=== PATIENT | female | born 1955 | race Caucasian/White ===

== ENCOUNTER 2016-05-27 15:45 | Emergency (ER) | payer OTHER ==
[~2016-05-27] VITALS: Ht 157.5 cm; Wt 54.4 kg
[2016-05-27 15:45] VITALS: BP 141/71
[2016-05-27] MEDS ORDERED: OMEP40CA2 PO (15:57)
[2016-05-27] MEDS ORDERED: METF500T PO (15:57)
== END 2016-05-27 17:18 | disposition home or self-care (01) ==
LOC: M ED 16:39
DX: S00.93XA Contusion of unspecified part of head, initial encounter (principal); S00.91XA Abrasion of unspecified part of head, initial encounter; W01.198A Fall on same level from slipping, tripping and stumbling with subsequent striking against other object, initial encounter; Y92.410 Unspecified street and highway as the place of occurrence of the external cause; Y93.01 Activity, walking, marching and hiking; Y99.9 Unspecified external cause status

== ENCOUNTER → 2016-11-20 | Outpatient (CLI) | payer OTHER ==
[~2016-11-20] MED LIST: METF500T13 PO; OMEP40CA2 PO
[2016-11-20 08:49] LABS: MEAN CORPUSCULAR HEMOGLOBIN 29.8 pg (27.0-33.0); MEAN CORPUSCULAR HGB CONC 33.5 g/dl (32.0-36.5); MEAN CORPUSCULAR VOLUME 88.9 fl (80.0-96.0); RED CELL DISTRIBUTION WIDTH 11.9 % (11.5-14.5); WHITE BLOOD COUNT 6.1 10^3/uL (4.0-10.0)
[2016-11-20 09:07] LABS: ALBUMIN 3.7 GM/DL (3.2-5.2); ALBUMIN/GLOBULIN RATIO 1.23 (1.00-1.93); ALKALINE PHOSPHATASE 55 U/L (45-117); ALT/SGPT 33 U/L (12-78); ANION GAP 9 MEQ/L (8-16); AST/SGOT 22 U/L (15-37); BILIRUBIN,TOTAL 0.4 MG/DL (0.2-1.0); BLOOD UREA NITROGEN 23 MG/DL (7-18); CALCIUM LEVEL 8.8 MG/DL (8.8-10.2); CARBON DIOXIDE LEVEL 29 MEQ/L (21-32); CHLORIDE LEVEL 104 MEQ/L (98-107); CHOLESTEROL LEVEL 113 MG/DL (<200); CREATININE FOR GFR 0.88 MG/DL (0.55-1.02); GLOMERULAR FILTRATION RATE > 60.0 (>45); GLUCOSE, FASTING 107 MG/DL (80-110); POTASSIUM SERUM 3.9 MEQ/L (3.5-5.1); SODIUM LEVEL 142 MEQ/L (136-145); TOTAL PROTEIN 6.7 GM/DL (6.4-8.2); TRIGLYCERIDES LEVEL 134 MG/DL (<150)
== END ==
LOC: M LAB 07:49
PROVIDERS: ATTEND Family Medicine
DX: E11.9 Type 2 diabetes mellitus without complications (principal)

== ENCOUNTER → 2016-11-23 | Outpatient (CLI) | payer OTHER | LOC: M LAB 11:19 | PROVIDERS: ATTEND Family Medicine | DX: E11.9 Type 2 diabetes mellitus without complications (principal) ==

== ENCOUNTER → 2017-10-13 | Outpatient (CLI) | payer OTHER ==
[2017-10-13 08:35] LABS: BASO % 0.8 % (0.0-1.0); EOS # 0.2 10^3/uL (0.0-0.50); EOS % 4.5 % (0.0-3.0); HEMOGLOBIN 12.9 g/dl (12.0-15.5); IMMATURE GRANULOCYTE % 0.2 % (0-3.0); LYMPH # 1.5 10^3/uL (1.5-4.5); LYMPH % 30.1 % (24.0-44.0); MEAN CORPUSCULAR HEMOGLOBIN 29.8 pg (27.0-33.0); MEAN CORPUSCULAR HGB CONC 33.1 g/dl (32.0-36.5); MEAN CORPUSCULAR VOLUME 90.1 fl (80.0-96.0); MONO # 0.5 10^3/uL (0.0-0.8); MONO % 10.2 % (0.0-5.0); NEUTROPHILS # 2.6 10^3/uL (1.8-7.7); NEUTROPHILS % 54.2 % (36.0-66.0); PLATELET COUNT, AUTOMATED 153 10^3/uL (150-450); RED BLOOD COUNT 4.33 10^6/uL (4.00-5.40); RED CELL DISTRIBUTION WIDTH 11.8 % (11.5-14.5); WHITE BLOOD COUNT 4.9 10^3/uL (4.0-10.0)
[2017-10-13 09:02] LABS: ESTIMATED AVERAGE GLUCOSE 120 MG/DL (60-110); HEMOGLOBIN A1c 5.8 %
[2017-10-13 09:04] LABS: ALBUMIN 4.1 GM/DL (3.2-5.2); ALBUMIN/GLOBULIN RATIO 1.32 (1.00-1.93); ALKALINE PHOSPHATASE 68 U/L (45-117); ALT/SGPT 60 U/L (12-78); ANION GAP 9 MEQ/L (8-16); AST/SGOT 33 U/L (7-37); BILIRUBIN,TOTAL 0.5 MG/DL (0.2-1.0); BLOOD UREA NITROGEN 20 MG/DL (7-18); CALCIUM LEVEL 9.3 MG/DL (8.8-10.2); CARBON DIOXIDE LEVEL 28 MEQ/L (21-32); CHLORIDE LEVEL 107 MEQ/L (98-107); CHOLESTEROL LEVEL 117 MG/DL (<200); CHOLESTEROL RISK RATIO 2.489 (<5); CREATININE FOR GFR 0.95 MG/DL (0.55-1.30); GLOMERULAR FILTRATION RATE > 60.0 (>45); GLUCOSE, FASTING 94 MG/DL (70-100); HDL CHOLESTEROL 47 MG/DL (>40); NON-HDL-C 70 MG/DL; POTASSIUM SERUM 4.3 MEQ/L (3.5-5.1); SODIUM LEVEL 144 MEQ/L (136-145); TOTAL PROTEIN 7.2 GM/DL (6.4-8.2); TRIGLYCERIDES LEVEL 115 MG/DL (<150)
[2017-10-13 09:13] LABS: MALB URINE SIEMENS 35.4 MG/L
== END ==
LOC: M LAB 07:45
DX: E11.9 Type 2 diabetes mellitus without complications (principal)
CPT/HCPCS: 80053

== ENCOUNTER 2018-01-18 08:20 | Day surgery (SDC) | payer OTHER ==
[2018-01-18] MEDS: PHENYLEPHRINE 2.5% OPHTH SOL 2ML OS (07:00)
[~2018-01-18 08:20] MED LIST changes: +ACETAMINOPHEN 325 MG TAB PO; -METF500T13 PO; +MIDAZOLAM INJ 2 MG/2 ML VIAL (J2250) As Ordered; -OMEP40CA2 PO; +PHENYLEPHRINE HCL 10 % OPHTH. SOL 5ML OS; +fentaNYL 100 MCG/2 ML INJECTION (J3010) As Ordered
[2018-01-18 08:58] LABS: BEDSIDE GLUCOSE 93 MG/DL (80-115)
[2018-01-18] MEDS: OFLOXACIN 0.3 % (OCUFLOX) OPTH SOL 5ML OS (09:19)
[2018-01-18] MEDS: TROPICAMIDE 1% OPHTH SOLN 2ML OS (09:19)
[2018-01-18] MEDS: LIDOCAINE 3.5 % 1ML OPHTH TOPICAL GEL OU (09:19)
[2018-01-18] MEDS: CYCLOPENTOLATE 2% OPHTH SOLN 2ML BTL OS (09:20)
[2018-01-18] MEDS: POVIDONE-IODINE 5% OPHTH PREP SOL 30ML As Ordered (09:42)
[2018-01-18] MEDS: LIDOCAINE 1% SDV 5 ML VIAL As Ordered (09:45)
[2018-01-18] MEDS: HEALON DUET PRO(HEALON 10MG/ML 0.55ML & HEALON ENDOCOAT 30MG/ML 0.85ML) As Ordered ×2 (09:45→10:00)
[2018-01-18] MEDS: MOXIFLOXACIN IN BSS 0.25MG/0.25ML INTRACAMERAL INJ (OR EYE ONLY)(J2280) As Ordered (09:45)
[2018-01-18] MEDS: BSS with VANC/TOB/EPI for EYE CASES IR (09:46)
[2018-01-18] MEDS: TRYPAN BLUE 0.06 % 2.25 ML OPHTH SYR (VISIONBLUE) As Ordered (09:46)
[2018-01-18] MEDS: TRIAMCINOLONE PRES FR 40 MG/ML 1ML(TRIESENCE)(OR EYE ONLY)(J3300 PER 1MG) As Ordered (09:46)
[2018-01-18] MEDS: LIDOCAINE PRES-FREE 2% 10ML AMP XX (09:47)
[2018-01-18] MEDS: ACETYLCHOLINE OPHTH SOLN 1% 2ML (MIOCHOL-E) As Ordered (10:00)
[2018-01-18] MEDS ORDERED: TRIMETHOBENZAMIDE 300 MG CAP PO (11:00)
== END 2018-01-18 11:23 | disposition home or self-care (01) ==
LOC: M SDC 08:20
DX: H25.9 Unspecified age-related cataract (principal); I10 Essential (primary) hypertension; E11.9 Type 2 diabetes mellitus without complications; K21.9 Gastro-esophageal reflux disease without esophagitis; Z79.899 Other long term (current) drug therapy; E78.5 Hyperlipidemia, unspecified
CPT/HCPCS: 66984

== ENCOUNTER 2018-03-07 07:57 | Day surgery (SDC) | payer OTHER ==
[~2018-03-07] VITALS: Ht 157.5 cm; Wt 50.5 kg
[~2018-03-07 07:57] MED LIST changes: -ACETAMINOPHEN 325 MG TAB PO; +ACETAMINOPHEN 325 MG TAB PO PRN; +ASCORBIC ACID PO; +ATOR40TA75 PO; +BIOT10008 PO; +BSS with VANC/TOB/EPI for EYE CASES IR ONE; +CYCLOPENTOLATE 2% OPHTH SOLN 2ML BTL OD ONE; +FISH1000 PO; +HAIRTAB5 PO; +HEALON DUET PRO(HEALON 10MG/ML 0.55ML & HEALON ENDOCOAT 30MG/ML 0.85ML) As Ordered ONE; +IBUPOTC PO; +IRBE150T12 PO; +LIDOCAINE 1% SDV 5 ML VIAL As Ordered ONE; +LIDOCAINE 3.5 % 1ML OPHTH TOPICAL GEL OU ONE; +METF500T13 PO; -MIDAZOLAM INJ 2 MG/2 ML VIAL (J2250) As Ordered; +MOXIFLOXACIN IN BSS 0.25MG/0.25ML INTRACAMERAL INJ (OR EYE ONLY)(J2280) As Ordered ONE; +NAPR220C PO; +OFLOXACIN 0.3 % (OCUFLOX) OPTH SOL 5ML OD ONE; +OMEP40CA2 PO; +PHENYLEPHRINE 2.5% OPHTH SOL 2ML OD ONE; +PHENYLEPHRINE HCL 10 % OPHTH. SOL 5ML OD PRN; -PHENYLEPHRINE HCL 10 % OPHTH. SOL 5ML OS; +POVIDONE-IODINE 5% OPHTH PREP SOL 30ML As Ordered ONE; +RABE1TAB PO; +SERT50TA PO; +TRIAMCINOLONE PRES FR 40 MG/ML 1ML(TRIESENCE)(OR EYE ONLY)(J3300 PER 1MG) As Ordered ONE; +TROPICAMIDE 1% OPHTH SOLN 2ML OD ONE; +VITA200016 PO; +VITAE20CA PO; +VITATAB11 PO; -fentaNYL 100 MCG/2 ML INJECTION (J3010) As Ordered
[2018-03-07] MEDS ORDERED: MIDAZOLAM INJ 2 MG/2 ML VIAL (J2250) As Ordered ONE (09:50)
[2018-03-07] MEDS ORDERED: fentaNYL 100 MCG/2 ML INJECTION (J3010) As Ordered ONE (09:50)
[2018-03-07] MEDS ORDERED: TRIMETHOBENZAMIDE 300 MG CAP PO PRN (11:00)
[2018-03-07 11:15] VITALS: BP 139/66
== END 2018-03-07 11:25 | disposition home or self-care (01) ==
LOC: M SDC 07:57
PROVIDERS: ATTEND Ophthalmology
DX: H25.9 Unspecified age-related cataract (principal); E11.9 Type 2 diabetes mellitus without complications; I10 Essential (primary) hypertension; E78.5 Hyperlipidemia, unspecified; Z88.2 Allergy status to sulfonamides; Z79.899 Other long term (current) drug therapy
CPT/HCPCS: 66984; J2250; J2280; J3010; J3300

== ENCOUNTER → 2018-04-14 | Outpatient (CLI) | payer MEDICARE, OTHER ==
[~2018-04-14] MED LIST changes: -ACETAMINOPHEN 325 MG TAB PO PRN; -BSS with VANC/TOB/EPI for EYE CASES IR ONE; -CYCLOPENTOLATE 2% OPHTH SOLN 2ML BTL OD ONE; -HEALON DUET PRO(HEALON 10MG/ML 0.55ML & HEALON ENDOCOAT 30MG/ML 0.85ML) As Ordered ONE; -LIDOCAINE 1% SDV 5 ML VIAL As Ordered ONE; -LIDOCAINE 3.5 % 1ML OPHTH TOPICAL GEL OU ONE; -MOXIFLOXACIN IN BSS 0.25MG/0.25ML INTRACAMERAL INJ (OR EYE ONLY)(J2280) As Ordered ONE; -OFLOXACIN 0.3 % (OCUFLOX) OPTH SOL 5ML OD ONE; -PHENYLEPHRINE 2.5% OPHTH SOL 2ML OD ONE; -PHENYLEPHRINE HCL 10 % OPHTH. SOL 5ML OD PRN; -POVIDONE-IODINE 5% OPHTH PREP SOL 30ML As Ordered ONE; -TRIAMCINOLONE PRES FR 40 MG/ML 1ML(TRIESENCE)(OR EYE ONLY)(J3300 PER 1MG) As Ordered ONE; -TROPICAMIDE 1% OPHTH SOLN 2ML OD ONE
[2018-04-14 09:11] LABS: BASO % 0.5 % (0.0-1.0); EOS # 0.1 10^3/uL (0.0-0.50); EOS % 1.8 % (0.0-3.0); HEMATOCRIT 38.6 % (36.0-47.0); HEMOGLOBIN 13.3 g/dl (12.0-15.5); LYMPH # 1.7 10^3/uL (1.5-4.5); LYMPH % 26.2 % (24.0-44.0); MEAN CORPUSCULAR HEMOGLOBIN 30.8 pg (27.0-33.0); MEAN CORPUSCULAR HGB CONC 34.5 g/dl (32.0-36.5); MEAN CORPUSCULAR VOLUME 89.4 fl (80.0-96.0); MONO # 0.6 10^3/uL (0.0-0.8); MONO % 9.2 % (0.0-5.0); NEUTROPHILS % 61.7 % (36.0-66.0); PLATELET COUNT, AUTOMATED 211 10^3/uL (150-450); RED BLOOD COUNT 4.32 10^6/uL (4.00-5.40); WHITE BLOOD COUNT 6.5 10^3/uL (4.0-10.0)
[2018-04-14 09:36] LABS: ALBUMIN 3.8 GM/DL (3.2-5.2); ALT/SGPT 66 U/L (12-78); BILIRUBIN,TOTAL 0.5 MG/DL (0.2-1.0); BLOOD UREA NITROGEN 24 MG/DL (7-18); CALCIUM LEVEL 8.9 MG/DL (8.8-10.2); CARBON DIOXIDE LEVEL 28 MEQ/L (21-32); CHLORIDE LEVEL 106 MEQ/L (98-107); CHOLESTEROL LEVEL 130 MG/DL (<200); CREATININE FOR GFR 0.97 MG/DL (0.55-1.30); GLOMERULAR FILTRATION RATE > 60.0 (>45); GLUCOSE, FASTING 102 MG/DL (70-100); HDL CHOLESTEROL 50 MG/DL (>40); LDL CHOLESTEROL 58 MG/DL (<100); NON-HDL-C 80 MG/DL; POTASSIUM SERUM 4.2 MEQ/L (3.5-5.1); SODIUM LEVEL 142 MEQ/L (136-145); TOTAL PROTEIN 7.2 GM/DL (6.4-8.2); TRIGLYCERIDES LEVEL 108 MG/DL (<150)
[2018-04-14 09:41] LABS: MALB URINE SIEMENS 26.6 MG/L; MAU/CREAT RATIO 21.4 MCG/MG (0.0-30.0)
[2018-04-14 10:27] LABS: HEMOGLOBIN A1c 6.4 %
== END ==
LOC: M LAB 07:56
PROVIDERS: ATTEND Family Medicine
DX: E11.9 Type 2 diabetes mellitus without complications (principal)

== ENCOUNTER 2018-08-22 07:25 | Day surgery (SDC) | payer MEDICARE, OTHER ==
[~2018-08-22] VITALS: Ht 154.9 cm; Wt 51.6 kg
[~2018-08-22 07:25] MED LIST changes: +B COTAB3 PO; +NS 1,000 ML IV ONE; +SERT-141 PO; -SERT50TA PO
[2018-08-22] MEDS ORDERED: PROPOFOL 200 MG/20 ML VIAL As Ordered ONE ×2 (08:04→08:20)
[2018-08-22] MEDS ORDERED: LIDOCAINE 2% INJ 100 MG/5 ML SDV (FOR ANES.) As Ordered ONE (08:04)
[2018-08-22] MEDS ORDERED: ePHEDrine SULFATE 25 MG/5 ML(5MG/ML) SYRINGE As Ordered ONE (08:09)
--- NOTE | 2018-08-22 08:26 | ROOR ---
Patient Name: Ivania Mahajan Procedure Date: 08/22/2018 7:56 AM Date of : 1955 Age: 63 Room: [facility] Gender: Female Note Status: Finalized Procedure: Total Colonoscopy to Cecum + Biopsy Polypectomy Indications: Screening for colorectal malignant neoplasm Providers: Jesus Deshpande MD Referring MD: Maxime Lopez MD Requesting Provider: Medicines: Monitored Anesthesia Care Complications: No immediate complications. Procedure: Pre-Anesthesia Assessment: - The heart rate, respiratory rate, oxygen saturations, blood pressure, adequacy of pulmonary ventilation, and response to care were monitored throughout the procedure. The Colonoscope was introduced through the anus and advanced to the cecum, identified by appendiceal orifice and ileocecal valve. The colonoscopy was performed without difficulty. The patient tolerated the procedure well. The quality of the bowel preparation was excellent. Findings: The perianal and digital rectal examinations were normal. Non-bleeding internal hemorrhoids were found during retroflexion. The hemorrhoids were small and Grade I (internal hemorrhoids that do not prolapse). Two sessile polyps were found in the ascending colon. The polyps were small in size. These polyps were removed with a cold biopsy forceps. Resection and retrieval were complete. The exam was otherwise without abnormality on direct and retroflexion views. Impression: - Non-bleeding internal hemorrhoids. - Two small polyps in the ascending colon, removed with a cold biopsy forceps. Resected and retrieved. - The examination was otherwise normal on direct and retroflexion views. - The exam was otherwise normal to the cecum. Recommendation: - Patient has a contact number available for emergencies. The signs and symptoms of potential delayed complications were discussed with the patient. Return to normal activities tomorrow. Written discharge instructions were provided to the patient. - High fiber diet. - Discharge patient to home. - Continue present medications. - Await pathology results. - Telephone GI clinic for pathology results in 1 week. - Return to referring physician. - Repeat colonoscopy in 10 years for surveillance based on pathology results. - Return to referring physician. - The findings and recommendations were discussed with the patient's family. Jesus Deshpande MD Jesus Deshpande MD 08/22/2018 8:26:19 AM Electronically signed by Jesus Deshpande MD Number of Addenda: 0 Note Initiated On: 08/22/2018 7:56 AM Estimated Blood Loss: Estimated blood loss: none.
[2018-08-22 08:45] VITALS: BP 115/56
== END 2018-08-22 08:45 | disposition home or self-care (01) ==
LOC: M OPP 07:25
PROVIDERS: ATTEND Internal Medicine Gastroenterology
DX: K64.0 First degree hemorrhoids (principal); D12.2 Benign neoplasm of ascending colon; Z79.899 Other long term (current) drug therapy; Z88.8 Allergy status to other drugs, medicaments and biological substances; Z12.11 Encounter for screening for malignant neoplasm of colon

== ENCOUNTER 2019-07-06 16:52 | Emergency (ER) | payer MEDICARE, OTHER ==
[~2019-07-06] VITALS: Ht 154.9 cm; Wt 57.1 kg
[~2019-07-06 16:52] MED LIST changes: -IRBE150T12 PO; +IRBE150T7 PO; -NS 1,000 ML IV ONE; -OMEP40CA2 PO; +OMEP40CA97 PO
[2019-07-06] MEDS ORDERED: SERT50TA29 (17:00)
[2019-07-06 19:29] VITALS: BP 150/78
[2019-07-06] MEDS ORDERED: BOOSTRIX/ADACEL VACCINE (DIPHTH/PERTUSS/ACELL/TETANUS) 0.5ML SYR IM ONE (19:30)
== END 2019-07-06 19:32 | disposition home or self-care (01) ==
LOC: M ED 16:52
DX: S61.301A Unspecified open wound of left index finger with damage to nail, initial encounter (principal); W27.2XXA Contact with scissors, initial encounter; Y93.K3 Activity, grooming and shearing an animal; E11.9 Type 2 diabetes mellitus without complications; I10 Essential (primary) hypertension; Z79.899 Other long term (current) drug therapy; Z88.8 Allergy status to other drugs, medicaments and biological substances; Y99.8 Other external cause status

== ENCOUNTER → 2019-11-22 | Outpatient (CLI) | payer MEDICARE, OTHER ==
[~2019-11-22] MED LIST changes: +SERT50TA29
[2019-11-22 09:23] LABS: MEAN CORPUSCULAR HEMOGLOBIN 29.7 pg (27.0-33.0); MEAN CORPUSCULAR HGB CONC 33.3 g/dl (32.0-36.5); PLATELET COUNT, AUTOMATED 193 10^3/uL (150-450); RED BLOOD COUNT 4.38 10^6/uL (4.00-5.40); WHITE BLOOD COUNT 6.8 10^3/uL (4.0-10.0)
[2019-11-22 09:51] LABS: ALBUMIN 3.9 GM/DL (3.2-5.2); ALT/SGPT 34 U/L (12-78); BILIRUBIN,TOTAL 0.5 MG/DL (0.2-1.0); BLOOD UREA NITROGEN 20 MG/DL (7-18); CALCIUM LEVEL 9.2 MG/DL (8.8-10.2); CARBON DIOXIDE LEVEL 31 MEQ/L (21-32); CHLORIDE LEVEL 107 MEQ/L (98-107); CHOLESTEROL LEVEL 139 MG/DL (<200); CHOLESTEROL RISK RATIO 2.895 (<5); CREATININE FOR GFR 0.98 MG/DL (0.55-1.30); GLOMERULAR FILTRATION RATE > 60.0 (>45); GLUCOSE, FASTING 108 MG/DL (70-100); HDL CHOLESTEROL 48 MG/DL (>40); LDL CHOLESTEROL 61 MG/DL (<100); NON-HDL-C 91 MG/DL; POTASSIUM SERUM 4.4 MEQ/L (3.5-5.1); SODIUM LEVEL 142 MEQ/L (136-145); TOTAL PROTEIN 7.4 GM/DL (6.4-8.2); TRIGLYCERIDES LEVEL 150 MG/DL (<150)
[2019-11-22 10:00] LABS: CREATININE, URINE 56.4 MG/DL; MALB URINE SIEMENS 5.8 MG/L; MAU/CREAT RATIO 10.2 MCG/MG (0.0-30.0)
[2019-11-22 10:16] LABS: HEMOGLOBIN A1c 5.9 %
== END ==
LOC: M LAB 08:35
PROVIDERS: ATTEND Family Medicine
DX: E11.9 Type 2 diabetes mellitus without complications (principal)

== ENCOUNTER → 2020-02-22 | Outpatient (CLI) | payer MEDICARE, OTHER ==
--- NOTE | 2020-02-22 15:45 | REP ---
INDICATION: PAIN, DYSURIA. COMPARISON: None. TECHNIQUE: Five views lumbosacral spine. FINDINGS: There is no compression fracture. There is slight retrolisthesis of a couple of mm of L2 on L3. There is no evidence of spondylolysis. There is mild to moderate diffuse spurring. There is slight disc space narrowing at all levels with moderate disc space narrowing, subchondral sclerosis and vacuum phenomenon at L2-3. There is sclerosis and spurring at the posterior facet joints of L5-S1. Posterior elements appear intact. There is mild curvature toward the right. IMPRESSION: Arthritic changes as above with no compression fracture. <Electronically signed by Elder Ellison > 02/22/20 [id number]
--- NOTE | 2020-02-22 15:47 | REP ---
INDICATION: PAIN, DYSURIA. COMPARISON: None. TECHNIQUE: Three AP and lateral views sacrum and coccyx performed. FINDINGS: The frontal views are limited by overlying bowel gas and fecal material. No fracture or dislocation is seen. IMPRESSION: No evidence of acute fracture or dislocation radiographically. <Electronically signed by Elder Ellison > 02/22/20 [id number]
--- NOTE | 2020-02-22 15:47 | REP ---
INDICATION: PAIN, DYSURIA. COMPARISON: None. TECHNIQUE: Two views right hip. FINDINGS: There is no acute fracture, dislocation or intrinsic bone disease. There are mild degenerative changes at the hip joint with mild joint space narrowing, subchondral sclerosis and spurring. There are mild vascular calcifications noted. IMPRESSION: Mild degenerative changes with no fracture or dislocation. <Electronically signed by Elder Ellison > 02/22/20 [id number]
== END ==
LOC: M WUC 11:16
PROVIDERS: ATTEND Physician Assistant
DX: M16.11 Unilateral primary osteoarthritis, right hip (principal); M51.36 Other intervertebral disc degeneration, lumbar region; M54.5 Low back pain; R30.0 Dysuria; M25.551 Pain in right hip; R10.84 Generalized abdominal pain

== ENCOUNTER → 2020-02-22 | Outpatient (REF) | payer MEDICARE, OTHER ==
[2020-02-22 11:46] LABS: BASO % 0.3 % (0.0-1.0); EOS % 0.5 % (0.0-3.0); HEMATOCRIT 37.7 % (36.0-47.0); HEMOGLOBIN 12.4 g/dl (12.0-15.5); LYMPH % 26.1 % (24.0-44.0); MEAN CORPUSCULAR HEMOGLOBIN 29.8 pg (27.0-33.0); MEAN CORPUSCULAR HGB CONC 32.9 g/dl (32.0-36.5); MEAN CORPUSCULAR VOLUME 90.6 fl (80.0-96.0); MONO # 0.4 10^3/uL (0.0-0.8); MONO % 10.9 % (0.0-5.0); NEUTROPHILS # 2.3 10^3/uL (1.5-8.5); NEUTROPHILS % 61.7 % (36.0-66.0); PLATELET COUNT, AUTOMATED 145 10^3/uL (150-450); RED BLOOD COUNT 4.16 10^6/uL (4.00-5.40); WHITE BLOOD COUNT 3.8 10^3/uL (4.0-10.0)
[2020-02-22 11:54] LABS: APPEARANCE, URINE CLEAR (CLEAR); BACTERIA, URINE AUTO NEGATIVE (NEGATIVE); BILIRUBIN, URINE AUTO NEGATIVE (NEGATIVE); BLOOD, URINE BLOOD NEGATIVE (NEGATIVE); COLOR, URINE YELLOW (YELLOW); GLUCOSE, URINE (UA) AUTO NEGATIVE (NEGATIVE); KETONE, URINE AUTO NEGATIVE (NEGATIVE); LEUKOCYTE ESTERASE, URINE AUTO NEGATIVE (NEGATIVE); MUCUS, URINE SMALL (NEGATIVE); NITRITE, URINE AUTO NEGATIVE (NEGATIVE); PROTEIN, URINE AUTO NEGATIVE (NEGATIVE); RBC, URINE AUTO 4 /HPF (0-3); SPECIFIC GRAVITY URINE AUTO 1.023 (1.002-1.035); SQUAMOUS EPITHELIAL CELL UR AU 1 /HPF (0-6); UROBILINOGEN, URINE AUTO 0.2 mg/dL (0.0-2.0); WBC, URINE AUTO 1 /HPF (0-3)
[2020-02-22 12:49] LABS: ALBUMIN 3.9 GM/DL (3.2-5.2); ALT/SGPT 38 U/L (12-78); BILIRUBIN,TOTAL 0.4 MG/DL (0.2-1.0); BLOOD UREA NITROGEN 30 MG/DL (7-18); CALCIUM LEVEL 8.9 MG/DL (8.8-10.2); CARBON DIOXIDE LEVEL 27 MEQ/L (21-32); CHLORIDE LEVEL 109 MEQ/L (98-107); CREATININE FOR GFR 0.84 MG/DL (0.55-1.30); GLOMERULAR FILTRATION RATE > 60.0 (>45); GLUCOSE, FASTING 131 MG/DL (70-100); POTASSIUM SERUM 4.4 MEQ/L (3.5-5.1); SODIUM LEVEL 142 MEQ/L (136-145)
== END ==
LOC: M LABWUC 11:19
PROVIDERS: ATTEND Family Medicine
DX: R10.84 Generalized abdominal pain (principal)

== ENCOUNTER → 2020-02-26 | Outpatient (CLI) | payer MEDICARE, OTHER ==
[~2020-02-26] MED LIST changes: -RABE1TAB PO; +RABE1TAB4 PO
--- NOTE | 2020-02-27 17:10 | REP ---
INDICATION: GENERALIZED ABDOMINAL PAIN COMPARISON: None TECHNIQUE: Axial noncontrast images from the lung bases to the pubic symphysis with coronal and sagittal reformations. This CT examination was performed using the following dose reduction techniques: Automated exposure control, adjustment of mA and/or kv according to the patient's size, and use of iterative reconstruction technique. FINDINGS: Lung bases demonstrate patchy right middle lobe and right lower lobe airspace disease suggesting acute pneumonia which should be correlated with patient's COVID-19 status. Liver demonstrates subtle vague low-density areas within the left lobe which are nonspecific by noncontrast evaluation. Spleen is upper limits of normal in size. Pancreas and gallbladder are grossly normal by noncontrast evaluation. Bilateral kidneys and adrenal glands are grossly normal. The enteric system includes small hiatal hernia. No bowel obstruction or obvious acute inflammatory process is appreciated. Moderate fecal stasis and scattered colonic diverticula noted without acute diverticulitis. Pelvis demonstrates normal bladder and age-appropriate uterus/adnexa. No ascites. No free air. No adenopathy. No focal inflammatory stranding. Abdominal aorta without aneurysm. Musculoskeletal structures demonstrate age-related changes without acute osseous abnormality. IMPRESSION: 1. Patchy infiltrates in the visible right lower lung field concerning for pneumonia and correlation with patient COVID-19 status is recommended. 2. Subtle vague low-density area within the left hepatic lobe may warrant further investigation including ultrasound and if necessary pre/post contrast CT of the abdomen. <Electronically signed by Efren Lion > 02/27/20 [id number]
== END ==
LOC: M RAD 17:32
PROVIDERS: ATTEND Family Medicine
DX: R10.84 Generalized abdominal pain (principal); R16.1 Splenomegaly, not elsewhere classified; K44.9 Diaphragmatic hernia without obstruction or gangrene; K57.90 Diverticulosis of intestine, part unspecified, without perforation or abscess without bleeding; R91.8 Other nonspecific abnormal finding of lung field

== ENCOUNTER → 2020-11-27 | Outpatient (CLI) | payer MEDICARE, OTHER ==
[~2020-11-27] MED LIST changes: +OMEP40CA4 PO; -OMEP40CA97 PO
[2020-11-27 07:34] LABS: HEMATOCRIT 37.6 % (36.0-47.0); MEAN CORPUSCULAR HEMOGLOBIN 31.1 pg (27.0-33.0); MEAN CORPUSCULAR HGB CONC 34.6 g/dl (32.0-36.5); PLATELET COUNT, AUTOMATED 161 10^3/uL (150-450); RED BLOOD COUNT 4.18 10^6/uL (4.00-5.40); WHITE BLOOD COUNT 6.1 10^3/uL (4.0-10.0)
[2020-11-27 07:55] LABS: ALBUMIN 3.7 GM/DL (3.2-5.2); BILIRUBIN,TOTAL 0.7 MG/DL (0.2-1.0); CALCIUM LEVEL 9.1 MG/DL (8.8-10.2); CHOLESTEROL RISK RATIO 2.333 (<5); CREATININE FOR GFR 0.99 MG/DL (0.55-1.30); GLOMERULAR FILTRATION RATE 59.6 (>45); POTASSIUM SERUM 4.4 MEQ/L (3.5-5.1)
[2020-11-27 09:38] LABS: HEMOGLOBIN A1c 5.9 %
== END ==
LOC: M LAB 06:54
PROVIDERS: ATTEND Family Medicine
DX: E11.9 Type 2 diabetes mellitus without complications (principal)

== ENCOUNTER → 2021-12-09 | Outpatient (CLI) | payer MEDICARE, OTHER | LOC: M WHC 10:45 | PROVIDERS: ATTEND Family Medicine | DX: Z12.31 Encounter for screening mammogram for malignant neoplasm of breast (principal); N63.21 Unspecified lump in the left breast, upper outer quadrant ==

== ENCOUNTER → 2021-12-09 | Outpatient (CLI) | payer MEDICARE, OTHER ==
[2021-12-09 14:11] LABS: HEMATOCRIT 40.5 % (36.0-47.0); HEMOGLOBIN 13.5 g/dl (12.0-15.5); MEAN CORPUSCULAR HEMOGLOBIN 30.7 pg (27.0-33.0); MEAN CORPUSCULAR HGB CONC 33.3 g/dl (32.0-36.5); PLATELET COUNT, AUTOMATED 192 10^3/uL (150-450); WHITE BLOOD COUNT 7.5 10^3/uL (4.0-10.0)
[2021-12-09 14:38] LABS: HEMOGLOBIN A1c 6.4 %
[2021-12-09 15:10] LABS: ALBUMIN 4.1 GM/DL (3.2-5.2); BILIRUBIN,TOTAL 0.5 MG/DL (0.2-1.0); CALCIUM LEVEL 9.6 MG/DL (8.8-10.2); CHOLESTEROL RISK RATIO 2.921 (<5); CREATININE FOR GFR 1.02 MG/DL (0.55-1.30); GLOMERULAR FILTRATION RATE 57.4 (>45); TOTAL PROTEIN 7.4 GM/DL (6.4-8.2)
== END ==
LOC: M PLALAB 11:34
PROVIDERS: ATTEND Family Medicine
DX: E11.9 Type 2 diabetes mellitus without complications (principal)

== ENCOUNTER → 2022-01-15 | Outpatient (CLI) | payer MEDICARE, OTHER | LOC: M WHC 09:41 | PROVIDERS: ATTEND Family Medicine | DX: R92.2 Inconclusive mammogram (principal) | CPT/HCPCS: 76642; 77065; G0279 ==

== ENCOUNTER → 2022-05-22 | Outpatient (CLI) | payer MEDICARE, OTHER ==
[2022-05-22 12:00] LABS: APPEARANCE, URINE HAZY (CLEAR); BACTERIA, URINE AUTO 1+ (NEGATIVE); BILIRUBIN, URINE AUTO NEGATIVE (NEGATIVE); BLOOD, URINE BLOOD NEGATIVE (NEGATIVE); COLOR, URINE YELLOW (YELLOW); GLUCOSE, URINE (UA) AUTO NEGATIVE (NEGATIVE); KETONE, URINE AUTO NEGATIVE (NEGATIVE); LEUKOCYTE ESTERASE, URINE AUTO NEGATIVE (NEGATIVE); MUCUS, URINE SMALL (NEGATIVE); NITRITE, URINE AUTO NEGATIVE (NEGATIVE); PROTEIN, URINE AUTO NEGATIVE (NEGATIVE); RBC, URINE AUTO 3 /HPF (0-3); SPECIFIC GRAVITY URINE AUTO 1.016 (1.002-1.035); SQUAMOUS EPITHELIAL CELL UR AU 2 /HPF (0-6); UROBILINOGEN, URINE AUTO 0.2 mg/dL (0.0-2.0); WBC, URINE AUTO 0 /HPF (0-3)
== END ==
LOC: M LAB 11:04
PROVIDERS: ATTEND Family Medicine
DX: N39.0 Urinary tract infection, site not specified (principal)

== ENCOUNTER → 2022-07-21 | Outpatient (CLI) | payer MEDICARE, OTHER | LOC: M WHC 10:25 | PROVIDERS: ATTEND Family Medicine | DX: R92.2 Inconclusive mammogram (principal) | CPT/HCPCS: 77065; G0279 ==

== ENCOUNTER → 2022-12-01 | Outpatient (CLI) | payer MEDICARE, OTHER | LOC: M WHC 10:56 | PROVIDERS: ATTEND Family Medicine | DX: R92.333 Mammographic heterogeneous density, bilateral breasts (principal) | CPT/HCPCS: 77066; G0279 ==

== ENCOUNTER → 2022-12-08 | Outpatient (CLI) | payer MEDICARE, OTHER ==
[2022-12-08 10:14] LABS: BASO % 0.5 % (0.0-1.0); EOS % 0.5 % (0.0-3.0); HEMATOCRIT 41.2 % (36.0-47.0); HEMOGLOBIN 14.3 g/dl (12.0-15.5); LYMPH # 1.4 10^3/uL (1.5-5.0); MEAN CORPUSCULAR HEMOGLOBIN 31.6 pg (27.0-33.0); MEAN CORPUSCULAR HGB CONC 34.7 g/dl (32.0-36.5); MEAN CORPUSCULAR VOLUME 90.9 fl (80.0-96.0); MONO # 0.5 10^3/uL (0.0-0.8); MONO % 8.5 % (2.0-8.0); NEUTROPHILS # 3.5 10^3/uL (1.5-8.5); NEUTROPHILS % 64.3 % (36.0-66.0); PLATELET COUNT, AUTOMATED 184 10^3/uL (150-450); RED BLOOD COUNT 4.53 10^6/uL (4.00-5.40); WHITE BLOOD COUNT 5.5 10^3/uL (4.0-10.0)
[2022-12-08 10:36] LABS: HEMOGLOBIN A1c 5.8 % (4.0-6.0)
[2022-12-08 11:21] LABS: ALBUMIN 4.4 G/DL (3.2-5.2); ALKALINE PHOSPHATASE 42 U/L (46-116); ALT/SGPT 43 U/L (7.0-40); AST/SGOT 29 U/L (<34); BILIRUBIN,TOTAL 0.7 MG/DL (0.3-1.2); BLOOD UREA NITROGEN 31 MG/DL (9-23); CALCIUM LEVEL 9.6 MG/DL (8.3-10.6); CARBON DIOXIDE LEVEL 29 MMOL/L (20-31); CHLORIDE LEVEL 101 MMOL/L (98-107); CHOLESTEROL LEVEL 151 MG/DL (<200); CREATININE FOR GFR 0.92 MG/DL (0.55-1.30); GLOMERULAR FILTRATION RATE > 60.0 (>45); GLUCOSE, FASTING 118 MG/DL (74-106); LDL CHOLESTEROL 77.8 MG/DL (<100); POTASSIUM SERUM 4.3 MMOL/L (3.5-5.1); SODIUM LEVEL 140 MMOL/L (136-145); TOTAL PROTEIN 7.3 G/DL (5.7-8.2); TRIGLYCERIDES LEVEL 106 MG/DL (<150)
== END ==
LOC: M LAB 08:26
PROVIDERS: ATTEND Family Medicine
DX: E11.9 Type 2 diabetes mellitus without complications (principal)

== ENCOUNTER → 2023-04-21 | Outpatient (REF) | payer MEDICARE, OTHER ==
[~2023-04-21] MED LIST changes: +IRBE150T27 PO; -IRBE150T7 PO
[2023-04-21 17:28] LABS: APPEARANCE, URINE CLEAR (CLEAR); BACTERIA, URINE AUTO NEGATIVE (NEGATIVE); BILIRUBIN, URINE AUTO NEGATIVE (NEGATIVE); BLOOD, URINE BLOOD NEGATIVE (NEGATIVE); COLOR, URINE YELLOW (YELLOW); GLUCOSE, URINE (UA) AUTO NEGATIVE (NEGATIVE); KETONE, URINE AUTO NEGATIVE (NEGATIVE); LEUKOCYTE ESTERASE, URINE AUTO NEGATIVE (NEGATIVE); MUCUS, URINE SMALL (NEGATIVE); NITRITE, URINE AUTO NEGATIVE (NEGATIVE); PROTEIN, URINE AUTO NEGATIVE (NEGATIVE); RBC, URINE AUTO 1 /HPF (0-3); SPECIFIC GRAVITY URINE AUTO 1.013 (1.002-1.035); SQUAMOUS EPITHELIAL CELL UR AU 0 /HPF (0-6); UROBILINOGEN, URINE AUTO 0.2 mg/dL (0.0-2.0); WBC, URINE AUTO 0 /HPF (0-3)
[2023-04-21 17:37] LABS: ALKALINE PHOSPHATASE 45 U/L (46-116); ALT/SGPT 45 U/L (7.0-40); AST/SGOT 20 U/L (<34); BILIRUBIN,TOTAL 0.5 MG/DL (0.3-1.2); BLOOD UREA NITROGEN 22 MG/DL (9-23); CALCIUM LEVEL 8.4 MG/DL (8.3-10.6); CARBON DIOXIDE LEVEL 28 MMOL/L (20-31); CHLORIDE LEVEL 107 MMOL/L (98-107); CREATININE FOR GFR 0.74 MG/DL (0.55-1.30); GLOMERULAR FILTRATION RATE > 60.0 (>39); GLUCOSE, FASTING 127 MG/DL (74-106); POTASSIUM SERUM 4.1 MMOL/L (3.5-5.1); SODIUM LEVEL 141 MMOL/L (136-145); TOTAL PROTEIN 6.9 G/DL (5.7-8.2)
[2023-04-21 17:39] LABS: VITAMIN B12 LEVEL 579 PG/ML (211-911)
== END ==
LOC: M LAB REF 16:15
PROVIDERS: ATTEND Physician Assistant
DX: R41.0 Disorientation, unspecified (principal); N39.0 Urinary tract infection, site not specified

== ENCOUNTER 2023-04-26 14:44 | Inpatient (IN) | payer MEDICARE, OTHER ==
[~2023-04-26] VITALS: Ht 157.5 cm; Wt 49.2 kg
[2023-04-26 18:50] LABS: HEMATOCRIT 37.3 % (36.0-47.0); HEMOGLOBIN 12.7 g/dl (12.0-15.5); PLATELET COUNT, AUTOMATED 154 10^3/uL (150-450); WHITE BLOOD COUNT 6.1 10^3/uL (4.0-10.0)
[2023-04-26 19:04] LABS: ETHYL ALCOHOL (ETHANOL) < 0.003 % (0.000-0.010)
[2023-04-26 19:06] LABS: ALBUMIN 3.7 G/DL (3.2-5.2); ALKALINE PHOSPHATASE 59 U/L (46-116); ALT/SGPT 39 U/L (7.0-40); AST/SGOT 23 U/L (<34); BILIRUBIN,DIRECT 0.1 MG/DL (<0.4); BILIRUBIN,TOTAL 0.5 MG/DL (0.3-1.2); BLOOD UREA NITROGEN 28 MG/DL (9-23); CALCIUM LEVEL 9.4 MG/DL (8.3-10.6); CARBON DIOXIDE LEVEL 30 MMOL/L (20-31); CHLORIDE LEVEL 109 MMOL/L (98-107); GLOMERULAR FILTRATION RATE > 60.0 (>39); GLUCOSE, FASTING 140 MG/DL (74-106); SALICYLATE LEVEL < 3.0 MG/DL (<30); SODIUM LEVEL 143 MMOL/L (136-145); TOTAL PROTEIN 6.7 G/DL (5.7-8.2)
[2023-04-26 19:08] LABS: THYROID STIMULATING HORMONE 0.667 uIU/ML (0.55-4.78)
[2023-04-26] MEDS ORDERED: VIBE75TA PO (19:30)
[2023-04-26 21:38] LABS: AMPHETAMINES LEVEL URINE NEGATIVE (NEGATIVE); BARBITURATES URINE NEGATIVE (NEGATIVE); BENZODIAZEPINES URINE NEGATIVE (NEGATIVE); CANNABINOIDS URINE NEGATIVE (NEGATIVE); COCAINE METABOLITE URINE NEGATIVE (NEGATIVE); METHADONE URINE NEGATIVE (NEGATIVE); OPIATES URINE NEGATIVE (NEGATIVE); PHENCYCLIDINE URINE NEGATIVE (NEGATIVE)
[2023-04-27] MEDS ORDERED: UNRESOLVED PATIENT OWN MED ORDER XX SCH (00:01)
[2023-04-27] MEDS ORDERED: MAALOX 30 ML SUSP *UDC PO PRN (02:05)
[2023-04-27] MEDS ORDERED: diphenhydrAMINE 25MG CAP PO PRN (02:05)
[2023-04-27] MEDS ORDERED: ACETAMINOPHEN TAB 650MG DOSE (2X325MG) PO PRN (02:05)
[2023-04-27] MEDS ORDERED: MOM 30ML SUSPENSION UDC PO PRN (02:05)
[2023-04-27] MEDS ORDERED: traZODone 50 MG TAB PO PRN (02:05)
[2023-04-27 06:19] VITALS: BP 159/93; TEMP 97.3; O2SAT 98
[2023-04-27] MEDS ORDERED: EQL50TAB2 PO (08:55)
[2023-04-27] MEDS ORDERED: HOME MED LIST COMPLETE! XX SCH (08:55)
[2023-04-27] MEDS ORDERED: VITA100093 PO (08:55)
[2023-04-27] MEDS ORDERED: VIBEGRON 75 MG PO SCH (09:00)
[2023-04-27] MEDS ORDERED: RABEPRAZOLE 20 MG PO SCH (09:00)
[2023-04-27] MEDS ORDERED: QUEtiapine FUMARATE 25 MG TAB PO PRN (09:10)
[2023-04-27] MEDS: ATORVASTATIN 20 MG TAB PO SCH (10:06)
[2023-04-27] MEDS: IBUPROFEN 400MG TAB PO PRN (10:07)
[2023-04-27] MEDS: VITAMIN D 1,000 INTERNATIONAL UNITS TABLET PO SCH (10:07)
[2023-04-27] MEDS: SERTRALINE HCL 50 MG TAB PO SCH (10:09)
[2023-04-27 10:18] VITALS: BP 144/70
[2023-04-27 10:18] LABS: CHOLESTEROL RISK RATIO 3.23 (<5); HDL CHOLESTEROL 39.9 MG/DL (>40); LDL CHOLESTEROL 68.3 MG/DL (<100); NON-HDL-C 89.1 MG/DL
[2023-04-27] MEDS: IRBESARTAN 150MG TAB PO SCH (10:18)
[2023-04-27] MEDS: NEPHRO-VIT TAB (NEPHROCAPS) PO SCH (12:26)
[2023-04-27] MEDS ORDERED: BREXPIPRAZOLE 0.5MG TABLET (REXULTI) PO SCH (21:00)
[2023-04-28] MEDS ORDERED: VIBEGRON 75 MG PO SCH (09:00)
== END 2023-04-27 15:44 | disposition short-term general hospital (02) | DRG 947 ==
LOC: M ED 15:57 → M ED INP 04-27 02:04 → M PSY 04-27 03:15
PROVIDERS: ADMIT Student in an Organized Health Care Education/Training Program; ATTEND Student in an Organized Health Care Education/Training Program
DX: R41.9 Unspecified symptoms and signs involving cognitive functions and awareness (principal); U07.1 COVID-19; F05 Delirium due to known physiological condition; N39.0 Urinary tract infection, site not specified; F84.9 Pervasive developmental disorder, unspecified; R44.0 Auditory hallucinations; R10.9 Unspecified abdominal pain; E78.5 Hyperlipidemia, unspecified; I10 Essential (primary) hypertension; K21.9 Gastro-esophageal reflux disease without esophagitis; E11.9 Type 2 diabetes mellitus without complications; F32.A Depression, unspecified; F41.9 Anxiety disorder, unspecified; M19.90 Unspecified osteoarthritis, unspecified site; K42.9 Umbilical hernia without obstruction or gangrene; Z79.899 Other long term (current) drug therapy; Z88.2 Allergy status to sulfonamides; Z88.8 Allergy status to other drugs, medicaments and biological substances

== ENCOUNTER 2023-04-27 11:34 | Inpatient (IN) | payer MEDICARE, OTHER ==
[~2023-04-27] VITALS: Ht 157.5 cm; Wt 49.2 kg
[~2023-04-27 11:34] MED LIST changes: +EQL50TAB2 PO; +VIBE75TA PO; +VITA100093 PO
[2023-04-27] MEDS ORDERED: MAALOX 30 ML SUSP *UDC PO PRN (12:05)
[2023-04-27 15:30] VITALS: BP 174/80; TEMP 97.3; O2SAT 96
[2023-04-27] MEDS ORDERED: GLUCAGON INJ 1MG VIAL SC PRN (16:00)
[2023-04-27] MEDS ORDERED: GLUCOSE 4 GM CHEW PO PRN (16:00)
[2023-04-27] MEDS ORDERED: DEXTROSE 50% 50ML SYRINGE IV PRN (16:00)
[2023-04-27 17:00] LABS: BLOOD UREA NITROGEN 22 MG/DL (9-23); CARBON DIOXIDE LEVEL 28 MMOL/L (20-31); CHLORIDE LEVEL 107 MMOL/L (98-107); CREATININE FOR GFR 0.69 MG/DL (0.55-1.30); GLOMERULAR FILTRATION RATE > 60.0 (>39); GLUCOSE, FASTING 118 MG/DL (74-106); POTASSIUM SERUM 3.8 MMOL/L (3.5-5.1); SODIUM LEVEL 140 MMOL/L (136-145)
[2023-04-27 17:16] LABS: HEMOGLOBIN A1c 6.4 % (4.0-6.0)
[2023-04-27] MEDS: INSULIN LISPRO (NovoLOG) PER UNIT SC SCH ×2 (17:17→20:09)
[2023-04-27 19:55] VITALS: BP 168/65; TEMP 97.7; O2SAT 97
[2023-04-27 19:57] VITALS: BP 168/65
[2023-04-27] MEDS: BREXPIPRAZOLE 0.5MG TABLET (REXULTI) PO SCH (20:48)
[2023-04-27] MEDS: CEFDINIR 300 MG CAP (OMNICEF) PO SCH (20:48)
[2023-04-27] MEDS: ACETAMINOPHEN TAB 650MG DOSE (2X325MG) PO PRN (20:48)
[2023-04-27] MEDS: cloNIDine HCL 0.2 MG/24 HR PATCH TOP ONE (21:19)
[2023-04-28 06:00] VITALS: BP 145/69; TEMP 97.9; O2SAT 94
[2023-04-28 06:40] LABS: BLOOD UREA NITROGEN 19 MG/DL (9-23); CALCIUM LEVEL 8.6 MG/DL (8.3-10.6); CARBON DIOXIDE LEVEL 26 MMOL/L (20-31); CHLORIDE LEVEL 108 MMOL/L (98-107); CREATININE FOR GFR 0.72 MG/DL (0.55-1.30); GLOMERULAR FILTRATION RATE > 60.0 (>39); GLUCOSE, FASTING 115 MG/DL (74-106); POTASSIUM SERUM 4.1 MMOL/L (3.5-5.1); SODIUM LEVEL 140 MMOL/L (136-145)
[2023-04-28] MEDS: ATORVASTATIN 20 MG TAB PO SCH (09:44)
[2023-04-28] MEDS: PANTOPRAZOLE 40MG TAB (PROTONIX) PO SCH (09:44)
[2023-04-28] MEDS: SERTRALINE HCL 50 MG TAB PO SCH (09:44)
[2023-04-28] MEDS: ENOXAPARIN 40MG/0.4ML SYRINGE (J1650 PER 10MG) SC SCH (09:45)
[2023-04-28 09:55] LABS: C REACTIVE PROTEIN QUANTITATIV < 0.40 MG/DL (<1.0)
[2023-04-28 10:03] LABS: PROCALCITONIN 0.04 ng/ml
[2023-04-28] MEDS: IRBESARTAN 150MG TAB PO SCH (10:42)
[2023-04-28] MEDS ORDERED: PROHANCE 279.3MG/ML 15ML VIAL As Ordered ONE (12:19)
[2023-04-28 14:00] VITALS: BP 126/60; TEMP 97.3; O2SAT 96
[2023-04-28 15:07] LABS: HEMATOCRIT 41.2 % (36.0-47.0); HEMOGLOBIN 14.2 g/dl (12.0-15.5); MEAN CORPUSCULAR HEMOGLOBIN 31.1 pg (27.0-33.0); MEAN CORPUSCULAR HGB CONC 34.5 g/dl (32.0-36.5); MEAN CORPUSCULAR VOLUME 90.4 fl (80.0-96.0); PLATELET COUNT, AUTOMATED 172 10^3/uL (150-450); RED BLOOD COUNT 4.56 10^6/uL (4.00-5.40); WHITE BLOOD COUNT 7.4 10^3/uL (4.0-10.0)
[2023-04-28] MEDS ORDERED: RAMELTEON 8 MG TAB (ROZEREM) PO SCH (21:00)
[2023-04-28 22:15] VITALS: BP 108/73; TEMP 97.9; O2SAT 99
[2023-04-28] MEDS: SODIUM CHLORIDE NASAL 0.65% SPRAY BTL (OCEAN) SCH (22:16)
[2023-04-28] MEDS: FLUTICASONE PROP 0.05% NASAL SPRAY 16 GM (FLONASE) NARES SCH (22:16)
[2023-04-29] MEDS: RAMELTEON 8 MG TAB (ROZEREM) PO PRN (01:56)
[2023-04-29 06:00] VITALS: BP 174/74; TEMP 97.7; O2SAT 100
[2023-04-29 14:00] VITALS: BP 138/64; TEMP 97.7; O2SAT 98
[2023-04-29] MEDS: BREXPIPRAZOLE 0.5MG TABLET (REXULTI) PO SCH (14:28)
[2023-04-29] MEDS: RAMELTEON 8 MG TAB (ROZEREM) PO SCH (20:14)
[2023-04-29 21:21] VITALS: BP 161/75; TEMP 97.5; O2SAT 99
[2023-04-30] MEDS: QUEtiapine FUMARATE 25 MG TAB PO PRN (00:56)
[2023-04-30 06:00] VITALS: BP 137/65; TEMP 97.7; O2SAT 97
[2023-04-30] MEDS: SERTRALINE HCL 25 MG TABLET PO SCH (09:17)
[2023-04-30 13:30] VITALS: BP 151/74; TEMP 97.3; O2SAT 98
[2023-04-30 20:09] VITALS: BP 124/53; TEMP 97.9; O2SAT 99
[2023-04-30] MEDS: QUEtiapine FUMARATE 12.5 MG HALF-TAB PO SCH (20:11)
[2023-05-01] MEDS: QUEtiapine FUMARATE 12.5 MG HALF-TAB PO ONE (02:47)
[2023-05-01 06:48] VITALS: BP 142/75; TEMP 97.3; O2SAT 98
[2023-05-01] MEDS: MIRALAX *UNIT DOSE* 17GM PACKET PO SCH (09:48)
[2023-05-01] MEDS: METAMUCIL (PSYLLIUM) PACKET PO SCH (11:38)
[2023-05-01 14:00] VITALS: BP 130/64; TEMP 97.9; O2SAT 99
[2023-05-01] MEDS ORDERED: REXU1TAB2 PO (15:30)
[2023-05-01] MEDS ORDERED: MIRA3350 PO (15:30)
[2023-05-01] MEDS ORDERED: SERT25TA21 PO (15:30)
[2023-05-01] MEDS ORDERED: SERT-141 PO (15:30)
[2023-05-01] MEDS ORDERED: QUET1TAB17 PO ×2 (15:30)
[2023-05-01 20:30] VITALS: BP 108/53; TEMP 97.7; O2SAT 97
[2023-05-01] MEDS: QUEtiapine FUMARATE 25 MG TAB PO SCH (21:43)
[2023-05-02] VITALS (8 sets, daily range): BP systolic 120–175; BP diastolic 56–74; TEMP 97.3–98.1; O2SAT 97–99
[2023-05-02] MEDS ORDERED: LIDOCAINE 2% INJ 100 MG/5 ML SYRINGE IV STA (22:29)
[2023-05-02 22:49] LABS: HEMATOCRIT 34.7 % (36.0-47.0); HEMOGLOBIN 12.3 g/dl (12.0-15.5); MEAN CORPUSCULAR HEMOGLOBIN 31.5 pg (27.0-33.0); MEAN CORPUSCULAR HGB CONC 35.4 g/dl (32.0-36.5); MEAN CORPUSCULAR VOLUME 88.7 fl (80.0-96.0); PLATELET COUNT, AUTOMATED 207 10^3/uL (150-450); RED BLOOD COUNT 3.91 10^6/uL (4.00-5.40); WHITE BLOOD COUNT 6.4 10^3/uL (4.0-10.0)
[2023-05-02] MEDS: LIDOCAINE 2% MDV 20ML VIAL SC ONE (23:00)
[2023-05-02 23:13] LABS: BLOOD UREA NITROGEN 19 MG/DL (9-23); CARBON DIOXIDE LEVEL 30 MMOL/L (20-31); CHLORIDE LEVEL 107 MMOL/L (98-107); CREATININE FOR GFR 0.87 MG/DL (0.55-1.30); GLOMERULAR FILTRATION RATE > 60.0 (>39); GLUCOSE, FASTING 137 MG/DL (74-106); POTASSIUM SERUM 4.6 MMOL/L (3.5-5.1); SODIUM LEVEL 140 MMOL/L (136-145)
[2023-05-03 05:20] VITALS: BP 139/58; TEMP 97.9; O2SAT 96
[2023-05-03] MEDS: OLANZapine INTRAMUSCULAR 10MG VIAL IM PRN (10:06)
[2023-05-03] MEDS: amLODIPine 5 MG TAB PO SCH (11:12)
[2023-05-03] MEDS: ENOXAPARIN 40MG/0.4ML SYRINGE (J1650 PER 10MG) SC SCH (12:59)
[2023-05-03 14:00] VITALS: BP 108/55; TEMP 98.6; O2SAT 98
[2023-05-03 19:55] VITALS: BP 113/58; TEMP 97.9; O2SAT 97
[2023-05-04 05:12] VITALS: BP 154/70; TEMP 97.2; O2SAT 98
[2023-05-04 13:59] VITALS: BP 128/62; TEMP 97.3; O2SAT 99
[2023-05-04 21:33] VITALS: BP 111/58; TEMP 97.2; O2SAT 96
[2023-05-05 14:00] VITALS: BP 116/58; TEMP 97.9; O2SAT 97
[2023-05-05 22:00] VITALS: BP 120/60; TEMP 97.7; O2SAT 97
[2023-05-06 06:07] LABS: HEMATOCRIT 38.8 % (36.0-47.0); HEMOGLOBIN 13.2 g/dl (12.0-15.5); MEAN CORPUSCULAR VOLUME 91.1 fl (80.0-96.0); PLATELET COUNT, AUTOMATED 228 10^3/uL (150-450); RED BLOOD COUNT 4.26 10^6/uL (4.00-5.40); WHITE BLOOD COUNT 8.8 10^3/uL (4.0-10.0)
[2023-05-06 06:20] VITALS: BP 118/62; TEMP 97.7; O2SAT 99
[2023-05-06 14:00] VITALS: BP 112/63; TEMP 97.9; O2SAT 100
[2023-05-06 22:00] VITALS: BP 103/51; TEMP 97.5; O2SAT 98
[2023-05-07 05:30] VITALS: BP 134/55; TEMP 98.1; O2SAT 97
[2023-05-07 12:49] LABS: INR 1.14; PARTIAL THROMBOPLASTIN TIME 24.8 SECONDS (24.8-34.2); PROTHROMBIN TIME 14.3 SECONDS (12.5-14.5)
[2023-05-07 14:00] VITALS: BP 132/56; TEMP 96.8; O2SAT 91
[2023-05-07 20:06] VITALS: BP 118/59; TEMP 97.3; O2SAT 94
[2023-05-08 05:44] VITALS: BP 134/64; TEMP 97.5; O2SAT 96
[2023-05-08] MEDS: RIVAROXABAN 10MG TAB (XARELTO) PO SCH (09:02)
[2023-05-09 06:00] VITALS: BP 138/68; TEMP 97.7; O2SAT 96
[2023-05-09 06:21] LABS: HEMATOCRIT 35.5 % (36.0-47.0); HEMOGLOBIN 12.5 g/dl (12.0-15.5); MEAN CORPUSCULAR HEMOGLOBIN 31.3 pg (27.0-33.0); MEAN CORPUSCULAR HGB CONC 35.2 g/dl (32.0-36.5); PLATELET COUNT, AUTOMATED 191 10^3/uL (150-450); RED BLOOD COUNT 3.99 10^6/uL (4.00-5.40); WHITE BLOOD COUNT 6.3 10^3/uL (4.0-10.0)
[2023-05-09] MEDS: OLANZapine 5 MG TAB PO ONE (14:08)
[2023-05-10 05:26] VITALS: BP 131/58; TEMP 97.5; O2SAT 96
[2023-05-10 14:00] VITALS: BP 120/60; TEMP 97.7; O2SAT 98
[2023-05-10 20:40] VITALS: BP 123/62; TEMP 97.7; O2SAT 98
[2023-05-11 05:10] VITALS: BP 141/61; TEMP 97.7; O2SAT 100
[2023-05-12 05:30] VITALS: BP 141/62; TEMP 97.7; O2SAT 97
[2023-05-12 06:51] LABS: HEMATOCRIT 38.5 % (36.0-47.0); HEMOGLOBIN 12.3 g/dl (12.0-15.5); MEAN CORPUSCULAR HGB CONC 31.9 g/dl (32.0-36.5); PLATELET COUNT, AUTOMATED 164 10^3/uL (150-450); RED BLOOD COUNT 3.97 10^6/uL (4.00-5.40); WHITE BLOOD COUNT 4.7 10^3/uL (4.0-10.0)
[2023-05-13 05:16] VITALS: BP 132/59; TEMP 97.7; O2SAT 95
[2023-05-14 05:33] VITALS: BP 137/60; TEMP 98.4; O2SAT 96
[2023-05-14 08:19] VITALS: BP 138/61
[2023-05-15 03:50] VITALS: BP 114/62; TEMP 97.5; O2SAT 96
[2023-05-15 06:46] LABS: HEMATOCRIT 36.6 % (36.0-47.0); HEMOGLOBIN 12.7 g/dl (12.0-15.5); MEAN CORPUSCULAR HEMOGLOBIN 31.3 pg (27.0-33.0); MEAN CORPUSCULAR HGB CONC 34.7 g/dl (32.0-36.5); MEAN CORPUSCULAR VOLUME 90.1 fl (80.0-96.0); PLATELET COUNT, AUTOMATED 188 10^3/uL (150-450); RED BLOOD COUNT 4.06 10^6/uL (4.00-5.40); WHITE BLOOD COUNT 4.5 10^3/uL (4.0-10.0)
[2023-05-16 04:00] VITALS: BP 137/61; TEMP 97.5; O2SAT 99
[2023-05-17 04:45] VITALS: BP 130/53; TEMP 97.7; O2SAT 96
[2023-05-17] MEDS: ANALGESIC BALM CRM 3OZ TOP SCH (09:00)
[2023-05-17] MEDS: ACETAMINOPHEN 500 MG TAB PO ONE (09:32)
[2023-05-17] MEDS: OLANZapine 5 MG TAB PO PRN (23:43)
[2023-05-19 06:32] VITALS: BP 143/62; TEMP 97.9; O2SAT 98
[2023-05-20 05:07] VITALS: BP 116/50; TEMP 98.4; O2SAT 98
[2023-05-20 08:29] VITALS: BP 114/56; TEMP 98.2; O2SAT 97
[2023-05-20] MEDS: CETIRIZINE (ZyrTEC) 10 MG TAB PO SCH (19:20)
[2023-05-21 06:00] VITALS: BP 123/53; TEMP 97.7; O2SAT 92
[2023-05-21] MEDS: FLUTICASONE PROP 0.05% NASAL SPRAY 16 GM (FLONASE) NARES SCH (08:17)
[2023-05-22 06:15] VITALS: BP 134/62; TEMP 97.7; O2SAT 98
[2023-05-23 05:29] VITALS: BP 131/59; TEMP 98.2; O2SAT 100
[2023-05-24 06:32] VITALS: BP 132/66; TEMP 97.7; O2SAT 100
[2023-05-25 06:00] VITALS: BP 139/66; TEMP 97.9; O2SAT 94
[2023-05-26 05:16] VITALS: BP 144/58; TEMP 97.7; O2SAT 97
[2023-05-26 20:24] VITALS: BP 118/53; TEMP 97.5; O2SAT 97
[2023-05-27 06:00] VITALS: BP 142/66; TEMP 97.7; O2SAT 97
[2023-05-28 06:28] VITALS: BP 127/55; TEMP 97.7; O2SAT 97
[2023-05-29 07:00] VITALS: BP 137/53; TEMP 97.9; O2SAT 98
[2023-05-30 06:00] VITALS: BP 118/48; TEMP 97.9; O2SAT 94
[2023-06-01 05:50] VITALS: BP 116/54; TEMP 97.3; O2SAT 98
[2023-06-02 05:36] VITALS: BP 114/48; TEMP 97.9; O2SAT 98
[2023-06-03 06:20] VITALS: BP 120/59; TEMP 97.5; O2SAT 100
[2023-06-05 05:58] VITALS: BP 122/65; TEMP 97; O2SAT 98
[2023-06-06 05:48] VITALS: BP 132/60; TEMP 97.9; O2SAT 98
[2023-06-07 05:17] VITALS: BP 132/57; TEMP 98.1; O2SAT 97
[2023-06-07] MEDS: ANALGESIC BALM CRM 3OZ TOP PRN (20:27)
[2023-06-08 04:49] VITALS: BP 119/59; TEMP 97.7; O2SAT 98
[2023-06-08] MEDS: oxyBUTYnin 5 MG TAB PO SCH (10:44)
[2023-06-09 06:10] VITALS: BP 134/63; TEMP 97.5; O2SAT 98
[2023-06-10 06:00] VITALS: BP 140/70; TEMP 97.2; O2SAT 95
[2023-06-11 06:00] VITALS: BP 127/56; TEMP 97.9; O2SAT 93
[2023-06-11 08:09] VITALS: BP 126/56
[2023-06-11] MEDS ORDERED: AMLO1TAB24 PO (09:27)
[2023-06-11] MEDS ORDERED: PANT40TA29 PO (09:27)
[2023-06-11] MEDS ORDERED: SERT25TA85 PO (09:29)
== END 2023-06-11 12:13 | DRG 884 ==
LOC: M MSPAV 15:50
PROVIDERS: ADMIT Student in an Organized Health Care Education/Training Program; ATTEND Internal Medicine
PROC: B246ZZZ Ultrasonography of Right and Left Heart (ICD-10-PCS; principal; 2023-05-03)
DX: F03.92 Unspecified dementia, unspecified severity, with psychotic disturbance (principal); U07.1 COVID-19; E78.5 Hyperlipidemia, unspecified; I10 Essential (primary) hypertension; K21.9 Gastro-esophageal reflux disease without esophagitis; E11.9 Type 2 diabetes mellitus without complications; J01.00 Acute maxillary sinusitis, unspecified; F41.9 Anxiety disorder, unspecified; M19.011 Primary osteoarthritis, right shoulder; H26.9 Unspecified cataract; K42.9 Umbilical hernia without obstruction or gangrene; Z79.899 Other long term (current) drug therapy; Z88.2 Allergy status to sulfonamides; Z88.8 Allergy status to other drugs, medicaments and biological substances; F39 Unspecified mood [affective] disorder; I44.0 Atrioventricular block, first degree; N39.41 Urge incontinence; S01.91XA Laceration without foreign body of unspecified part of head, initial encounter; W06.XXXA Fall from bed, initial encounter; Y92.230 Patient room in hospital as the place of occurrence of the external cause; Y93.9 Activity, unspecified

== ENCOUNTER → 2023-06-24 | Outpatient (REF) | payer MEDICARE, OTHER ==
[~2023-06-24] MED LIST changes: +AMLO1TAB24 PO; +MIRA3350 PO; +PANT40TA29 PO; +QUET1TAB17 PO; +REXU1TAB2 PO; +SERT25TA21 PO; +SERT25TA85 PO
[2023-06-24 09:55] LABS: HEMOGLOBIN 12.4 g/dl (12.0-15.5); MEAN CORPUSCULAR HGB CONC 33.5 g/dl (32.0-36.5); MEAN CORPUSCULAR VOLUME 92.5 fl (80.0-96.0); PLATELET COUNT, AUTOMATED 146 10^3/uL (150-450); WHITE BLOOD COUNT 5.3 10^3/uL (4.0-10.0)
[2023-06-24 10:21] LABS: ALBUMIN 3.5 G/DL (3.2-5.2); ALKALINE PHOSPHATASE 62 U/L (46-116); ALT/SGPT 86 U/L (7.0-40); AST/SGOT 42 U/L (<34); BILIRUBIN,TOTAL 0.5 MG/DL (0.3-1.2); BLOOD UREA NITROGEN 21 MG/DL (9-23); CARBON DIOXIDE LEVEL 30 MMOL/L (20-31); CHLORIDE LEVEL 108 MMOL/L (98-107); CHOLESTEROL LEVEL 137 MG/DL (<200); CHOLESTEROL RISK RATIO 3.04 (<5); CREATININE FOR GFR 0.82 MG/DL (0.55-1.30); GLOMERULAR FILTRATION RATE > 60.0 (>39); GLUCOSE, FASTING 181 MG/DL (74-106); LDL CHOLESTEROL 67.6 MG/DL (<100); POTASSIUM SERUM 4.1 MMOL/L (3.5-5.1); SODIUM LEVEL 143 MMOL/L (136-145); TOTAL PROTEIN 6.4 G/DL (5.7-8.2); TRIGLYCERIDES LEVEL 122 MG/DL (<150)
[2023-06-24 10:37] LABS: HEMOGLOBIN A1c 5.8 % (4.0-6.0)
== END ==
LOC: SKLAB8 07:04
PROVIDERS: ATTEND Internal Medicine
DX: E78.5 Hyperlipidemia, unspecified (principal); E11.9 Type 2 diabetes mellitus without complications

== ENCOUNTER → 2023-08-24 | Outpatient (REF) ==
[2023-08-24 10:47] LABS: BLOOD UREA NITROGEN 29 MG/DL (9-23); CALCIUM LEVEL 8.8 MG/DL (8.3-10.6); CARBON DIOXIDE LEVEL 28 MMOL/L (20-31); CHLORIDE LEVEL 109 MMOL/L (98-107); CREATININE FOR GFR 0.96 MG/DL (0.55-1.30); GLOMERULAR FILTRATION RATE > 60.0 (>39); GLUCOSE, FASTING 148 MG/DL (74-106); POTASSIUM SERUM 4.1 MMOL/L (3.5-5.1); SODIUM LEVEL 143 MMOL/L (136-145)
== END ==
LOC: SKLAB7 08:50
PROVIDERS: ATTEND Internal Medicine
DX: I11.0 Hypertensive heart disease with heart failure (principal); I50.9 Heart failure, unspecified

== ENCOUNTER → 2023-08-31 | Outpatient (REF) | payer MEDICARE, OTHER ==
[2023-08-31 09:16] LABS: BLOOD UREA NITROGEN 21 MG/DL (9-23); CALCIUM LEVEL 8.7 MG/DL (8.3-10.6); CARBON DIOXIDE LEVEL 28 MMOL/L (20-31); CHLORIDE LEVEL 106 MMOL/L (98-107); CREATININE FOR GFR 0.82 MG/DL (0.55-1.30); GLOMERULAR FILTRATION RATE > 60.0 (>39); GLUCOSE, FASTING 125 MG/DL (74-106); POTASSIUM SERUM 4.3 MMOL/L (3.5-5.1); SODIUM LEVEL 142 MMOL/L (136-145)
== END ==
LOC: SKLAB7 07:13
PROVIDERS: ATTEND Internal Medicine
DX: I50.9 Heart failure, unspecified (principal); I11.0 Hypertensive heart disease with heart failure

== ENCOUNTER → 2023-10-15 | Outpatient (REF) | payer MEDICARE, OTHER ==
[~2023-10-15] MED LIST changes: +HYDR-643 PO; +MELA5CAP2 PO; +PANT20TA6 PO; +REXU1TAB3 PO; +TYLE650T38 PO
== END ==
LOC: SKLAB7 14:09
PROVIDERS: ATTEND Internal Medicine
DX: F03.94 Unspecified dementia, unspecified severity, with anxiety (principal); Z53.8 Procedure and treatment not carried out for other reasons

== ENCOUNTER → 2023-10-15 | Outpatient (REF) | payer MEDICARE, OTHER ==
[2023-10-15 11:47] LABS: HEMATOCRIT 39.4 % (36.0-47.0); HEMOGLOBIN 13.5 g/dl (12.0-15.5); MEAN CORPUSCULAR HEMOGLOBIN 30.7 pg (27.0-33.0); MEAN CORPUSCULAR HGB CONC 34.3 g/dl (32.0-36.5); MEAN CORPUSCULAR VOLUME 89.5 fl (80.0-96.0); PLATELET COUNT, AUTOMATED 166 10^3/uL (150-450); WHITE BLOOD COUNT 7.6 10^3/uL (4.0-10.0)
[2023-10-15 12:17] LABS: ALBUMIN 4.1 G/DL (3.2-5.2); ALKALINE PHOSPHATASE 58 U/L (46-116); ALT/SGPT 40 U/L (7.0-40); AST/SGOT 24 U/L (<34); BILIRUBIN,TOTAL 0.7 MG/DL (0.3-1.2); BLOOD UREA NITROGEN 21 MG/DL (9-23); CALCIUM LEVEL 10.1 MG/DL (8.3-10.6); CARBON DIOXIDE LEVEL 29 MMOL/L (20-31); CHLORIDE LEVEL 108 MMOL/L (98-107); CREATININE FOR GFR 0.78 MG/DL (0.55-1.30); GLOMERULAR FILTRATION RATE > 60.0 (>39); GLUCOSE, FASTING 145 MG/DL (74-106); SODIUM LEVEL 144 MMOL/L (136-145); THYROID STIMULATING HORMONE 0.716 uIU/ML (0.55-4.78); TOTAL PROTEIN 7.5 G/DL (5.7-8.2)
[2023-10-15 14:36] LABS: TOTAL 25(OH) VITAMIN D 48.3 NG/ML (20.0-100.0)
== END ==
LOC: SKLAB7 11:12
PROVIDERS: ATTEND Internal Medicine
DX: R30.0 Dysuria (principal); F03.94 Unspecified dementia, unspecified severity, with anxiety; Z79.899 Other long term (current) drug therapy

== ENCOUNTER → 2023-10-16 | Outpatient (REF) | payer MEDICARE, OTHER | LOC: SKLAB7 22:51 | PROVIDERS: ATTEND Internal Medicine | DX: R41.0 Disorientation, unspecified (principal) ==

== ENCOUNTER 2023-10-19 03:50 | Emergency (ER) | payer MEDICARE, OTHER ==
[~2023-10-19] VITALS: Ht 162.6 cm; Wt 54.5 kg
[~2023-10-19 03:50] MED LIST changes: -HYDR-643 PO; -MELA5CAP2 PO; -PANT20TA6 PO; -REXU1TAB3 PO; -TYLE650T38 PO
[2023-10-19] MEDS: NEOSPORIN OINT 0.9 GM PKT TOP ONE (05:40)
[2023-10-19] MEDS: LIDOCAINE 1% MDV 20ML VIAL INFIL ONE (05:40)
[2023-10-19] MEDS: BOOSTRIX VACCINE (TETANUS/DIPHTH/ACEL. PERTUSSIS) 0.5ML SYR IM ONE (07:50)
[2023-10-19 07:51] VITALS: BP 166/77; TEMP 96.8; O2SAT 99
== END 2023-10-19 08:22 | disposition short-term general hospital (02) ==
LOC: M ED 03:50
DX: S01.81XA Laceration without foreign body of other part of head, initial encounter (principal); W06.XXXA Fall from bed, initial encounter; Y92.129 Unspecified place in nursing home as the place of occurrence of the external cause; Y93.89 Activity, other specified; Y99.9 Unspecified external cause status; M47.812 Spondylosis without myelopathy or radiculopathy, cervical region; Z87.81 Personal history of (healed) traumatic fracture; I51.9 Heart disease, unspecified; F41.9 Anxiety disorder, unspecified; Z79.899 Other long term (current) drug therapy; Z88.2 Allergy status to sulfonamides

== ENCOUNTER 2023-10-23 08:59 | Inpatient (IN) | payer MEDICARE, OTHER ==
[~2023-10-23] VITALS: Ht 162.6 cm; Wt 78.2 kg
[2023-10-23 10:29] LABS: VENOUS BASE EXCESS 2.4 (-2.0-2.0); VENOUS HCO3 27.4 MMOL/L (23.0-27.0); VENOUS O2 SATURATION 86.8 % (60.0-80.0); VENOUS PARTIAL PRESSURE CO2 43.7 mmHg (38.0-50.0); VENOUS PARTIAL PRESSURE O2 49.9 mmHg (30.0-50.0); VENOUS PH 7.415 UNITS (7.330-7.430); VENOUS STANDARD HCO3 26.3 MMOL/L; VENOUS TOTAL CO2 28.7 MMOL/L (24.0-28.0)
[2023-10-23 10:32] LABS: BASO % 0.4 % (0.0-1.0); EOS # 0.1 10^3/uL (0.0-0.5); EOS % 0.6 % (0.0-3.0); HEMOGLOBIN 13.5 g/dl (12.0-15.5); LYMPH # 1.7 10^3/uL (1.5-5.0); LYMPH % 20.8 % (24.0-44.0); MEAN CORPUSCULAR HEMOGLOBIN 30.7 pg (27.0-33.0); MEAN CORPUSCULAR HGB CONC 34.6 g/dl (32.0-36.5); MEAN CORPUSCULAR VOLUME 88.6 fl (80.0-96.0); MONO # 0.8 10^3/uL (0.0-0.8); MONO % 9.9 % (2.0-8.0); NEUTROPHILS # 5.5 10^3/uL (1.5-8.5); NEUTROPHILS % 68.1 % (36.0-66.0); PLATELET COUNT, AUTOMATED 170 10^3/uL (150-450)
[2023-10-23 11:01] LABS: ALBUMIN 3.5 G/DL (3.2-5.2); ALKALINE PHOSPHATASE 62 U/L (46-116); ALT/SGPT 24 U/L (7.0-40); AST/SGOT 17 U/L (<34); BILIRUBIN,DIRECT 0.1 MG/DL (<0.4); BILIRUBIN,TOTAL 0.4 MG/DL (0.3-1.2); BLOOD UREA NITROGEN 26 MG/DL (9-23); CALCIUM LEVEL 9.6 MG/DL (8.3-10.6); CARBON DIOXIDE LEVEL 30 MMOL/L (20-31); CHLORIDE LEVEL 108 MMOL/L (98-107); CREATININE FOR GFR 0.72 MG/DL (0.55-1.30); GLOMERULAR FILTRATION RATE > 60.0 (>39); GLUCOSE, FASTING 211 MG/DL (74-106); POTASSIUM SERUM 3.6 MMOL/L (3.5-5.1); SODIUM LEVEL 143 MMOL/L (136-145)
[2023-10-23 11:04] LABS: THYROID STIMULATING HORMONE 0.441 uIU/ML (0.55-4.78)
[2023-10-23] MEDS: NS 500 ML IV ONE (11:19)
[2023-10-23 11:28] LABS: OSMOLALITY SERUM 311 MOSM/KG (280-301)
[2023-10-23] MEDS: INSULIN LISPRO (NovoLOG) PER UNIT SC SCH ×2 (12:00→20:56)
[2023-10-23] MEDS ORDERED: REXU1TAB3 PO (12:12)
[2023-10-23] MEDS ORDERED: TYLE650T38 PO (12:12)
[2023-10-23] MEDS ORDERED: VIBE75TA PO (12:12)
[2023-10-23] MEDS ORDERED: MELA5CAP2 PO (12:12)
[2023-10-23] MEDS ORDERED: PANT20TA6 PO (12:12)
[2023-10-23] MEDS ORDERED: HYDR-643 PO (12:12)
[2023-10-23] MEDS ORDERED: HOME MED LIST COMPLETE! XX SCH (12:20)
[2023-10-23] MEDS ORDERED: MAALOX 30 ML SUSP *UDC PO PRN (12:30)
[2023-10-23] MEDS ORDERED: MOM 30ML SUSPENSION UDC PO PRN (12:30)
[2023-10-23] MEDS ORDERED: DEXTROSE 50% 50ML SYRINGE IV PRN (12:40)
[2023-10-23] MEDS ORDERED: GLUCOSE 4 GM CHEW PO PRN (12:40)
[2023-10-23] MEDS ORDERED: GLUCAGON INJ 1MG VIAL SC PRN (12:40)
[2023-10-23] MEDS: PANTOPRAZOLE 20 MG TAB PO SCH (13:38)
[2023-10-23 16:33] LABS: FREE T4 1.65 NG/DL (0.89-1.76); THYROXINE (T4) 7.7 UG/DL (4.5-10.9)
[2023-10-23] MEDS ORDERED: hydrALAZINE 20MG/ML 1ML VIAL IV PRN (17:25)
[2023-10-23 18:12] VITALS: BP 142/68; O2SAT 89
[2023-10-23 19:39] VITALS: BP 166/74; TEMP 97.2; O2SAT 98
[2023-10-23] MEDS: ACETAMINOPHEN TAB 650MG DOSE (2X325MG) PO PRN (19:47)
[2023-10-23] MEDS: RAMELTEON 8 MG TAB (ROZEREM) PO ONE (22:45)
[2023-10-24] VITALS (7 sets, daily range): BP systolic 110–177; BP diastolic 60–88; TEMP 97–97.3; O2SAT 95–100
[2023-10-24 08:20] LABS: BLOOD UREA NITROGEN 22 MG/DL (9-23); CALCIUM LEVEL 9.4 MG/DL (8.3-10.6); CARBON DIOXIDE LEVEL 28 MMOL/L (20-31); CHLORIDE LEVEL 107 MMOL/L (98-107); CREATININE FOR GFR 0.72 MG/DL (0.55-1.30); GLOMERULAR FILTRATION RATE > 60.0 (>39); GLUCOSE, FASTING 139 MG/DL (74-106); MAGNESIUM LEVEL 1.9 MG/DL (1.8-2.4); POTASSIUM SERUM 3.6 MMOL/L (3.5-5.1); SODIUM LEVEL 143 MMOL/L (136-145)
[2023-10-24 08:22] LABS: HEMOGLOBIN A1c 6.4 % (4.0-6.0)
[2023-10-24] MEDS: LIDOCAINE 5% (LIDODERM) PATCH TD SCH (13:49)
[2023-10-24] MEDS ORDERED: LIDOCAINE 5% (LIDODERM) PATCH TD ONE (15:05)
[2023-10-24] MEDS: amLODIPine 5 MG TAB PO ONE (16:03)
[2023-10-24] MEDS: PERCOCET 5MG/325MG TAB PO PRN (21:05)
[2023-10-24] MEDS: ERYTHROMYCIN OPHTH OINT OU SCH (21:05)
[2023-10-25] VITALS (7 sets, daily range): BP systolic 134–180; BP diastolic 62–78; TEMP 97–99.1; O2SAT 92–99
[2023-10-25 08:45] LABS: BLOOD UREA NITROGEN 25 MG/DL (9-23); CARBON DIOXIDE LEVEL 29 MMOL/L (20-31); CHLORIDE LEVEL 107 MMOL/L (98-107); CREATININE FOR GFR 0.76 MG/DL (0.55-1.30); GLOMERULAR FILTRATION RATE > 60.0 (>39); GLUCOSE, FASTING 163 MG/DL (74-106); MAGNESIUM LEVEL 1.8 MG/DL (1.8-2.4); POTASSIUM SERUM 3.6 MMOL/L (3.5-5.1); SODIUM LEVEL 144 MMOL/L (136-145)
[2023-10-25] MEDS: PERCOCET 5MG/325MG TAB PO PRN (08:50)
[2023-10-25] MEDS: amLODIPine 5 MG TAB PO SCH (08:51)
[2023-10-25] MEDS ORDERED: LIDOCAINE 5% (LIDODERM) PATCH TD SCH (09:00)
[2023-10-25] MEDS: RAMELTEON 8 MG TAB (ROZEREM) PO SCH (20:34)
[2023-10-26 04:00] VITALS: BP 144/80; TEMP 98.4
[2023-10-26 06:49] VITALS: TEMP 97.5; O2SAT 97
[2023-10-26 07:58] VITALS: BP 149/67; TEMP 97.9; O2SAT 95
[2023-10-26 08:12] VITALS: BP 149/67
[2023-10-26] MEDS: HEPARIN SOD (PORCINE) 5000UNITS/ML 1ML VIAL/SYRINGE SC SCH (09:30)
[2023-10-26] MEDS ORDERED: LIDO5TD TD (11:08)
[2023-10-26] MEDS ORDERED: AMLO1TAB24 PO (11:08)
[2023-10-26] MEDS ORDERED: ERYT5OIN25 OU (11:08)
[2023-10-26] MEDS ORDERED: LISI10TA22 PO (11:08)
== END 2023-10-26 13:32 | DRG 92 ==
LOC: M ED 08:59 → EDBD 08:59 → M ED INP 12:29 → M PCU 17:52
PROVIDERS: ADMIT Student in an Organized Health Care Education/Training Program; ATTEND Student in an Organized Health Care Education/Training Program
DX: R29.6 Repeated falls (principal); S06.0XAA Concussion with loss of consciousness status unknown, initial encounter; I16.0 Hypertensive urgency; F03.90 Unspecified dementia, unspecified severity, without behavioral disturbance, psychotic disturbance, mood disturbance, and anxiety; I10 Essential (primary) hypertension; E78.5 Hyperlipidemia, unspecified; E11.9 Type 2 diabetes mellitus without complications; K21.9 Gastro-esophageal reflux disease without esophagitis; R13.10 Dysphagia, unspecified; H10.9 Unspecified conjunctivitis; F32.A Depression, unspecified; F41.9 Anxiety disorder, unspecified; M19.90 Unspecified osteoarthritis, unspecified site; Z66 Do not resuscitate; Z79.899 Other long term (current) drug therapy; Z88.2 Allergy status to sulfonamides; Z88.8 Allergy status to other drugs, medicaments and biological substances; S00.03XA Contusion of scalp, initial encounter; W19.XXXA Unspecified fall, initial encounter; Y92.9 Unspecified place or not applicable; Y93.9 Activity, unspecified

== ENCOUNTER → 2023-11-01 | Outpatient (REF) ==
[~2023-11-01] MED LIST changes: +ERYT5OIN25 OU; +HYDR-643 PO; +LIDO5TD TD; +LISI10TA22 PO; +MELA5CAP2 PO; +PANT20TA6 PO; +REXU1TAB3 PO; +TYLE650T38 PO
== END ==
LOC: SKLAB7 14:52
PROVIDERS: ATTEND Internal Medicine
DX: R30.0 Dysuria (principal)

== ENCOUNTER → 2023-12-23 | Outpatient (REF) ==
[2023-12-23 10:43] LABS: HEMATOCRIT 39.1 % (36.0-47.0); HEMOGLOBIN 13.1 g/dl (12.0-15.5); MEAN CORPUSCULAR HEMOGLOBIN 31.6 pg (27.0-33.0); MEAN CORPUSCULAR HGB CONC 33.5 g/dl (32.0-36.5); MEAN CORPUSCULAR VOLUME 94.2 fl (80.0-96.0); PLATELET COUNT, AUTOMATED 150 10^3/uL (150-450); RED BLOOD COUNT 4.15 10^6/uL (4.00-5.40); WHITE BLOOD COUNT 6.6 10^3/uL (4.0-10.0)
[2023-12-23 11:06] LABS: HEMOGLOBIN A1c 6.4 % (4.0-6.0)
[2023-12-23 11:22] LABS: ALBUMIN 3.8 G/DL (3.2-5.2); ALKALINE PHOSPHATASE 46 U/L (35-104); ALT/SGPT 31 U/L (7.0-40); AST/SGOT 17 U/L (<34); BILIRUBIN,TOTAL 0.4 MG/DL (0.3-1.2); BLOOD UREA NITROGEN 23 MG/DL (9-23); CALCIUM LEVEL 9.3 MG/DL (8.3-10.6); CARBON DIOXIDE LEVEL 27 MMOL/L (20-31); CHLORIDE LEVEL 107 MMOL/L (98-107); CHOLESTEROL LEVEL 161 MG/DL (<200); CHOLESTEROL RISK RATIO 3.97 (<5); CREATININE FOR GFR 0.79 MG/DL (0.55-1.30); GLOMERULAR FILTRATION RATE > 60.0 (>39); GLUCOSE, FASTING 120 MG/DL (74-106); HDL CHOLESTEROL 40.5 MG/DL (>40); LDL CHOLESTEROL 74.3 MG/DL (<100); NON-HDL-C 120.5 MG/DL; POTASSIUM SERUM 4.2 MMOL/L (3.5-5.1); SODIUM LEVEL 142 MMOL/L (136-145); TRIGLYCERIDES LEVEL 231 MG/DL (<150)
== END ==
LOC: SKLAB7 07:00
PROVIDERS: ATTEND Internal Medicine
DX: E78.5 Hyperlipidemia, unspecified (principal); E11.9 Type 2 diabetes mellitus without complications

== ENCOUNTER → 2024-01-10 | Outpatient (REF) | payer MEDICARE, OTHER ==
[2024-01-10 15:29] LABS: BASO % 0.4 % (0.0-1.0); EOS # 0.1 10^3/uL (0.0-0.5); EOS % 0.7 % (0.0-3.0); HEMATOCRIT 39.2 % (36.0-47.0); HEMOGLOBIN 13.5 g/dl (12.0-15.5); LYMPH # 1.8 10^3/uL (1.5-5.0); LYMPH % 25.1 % (24.0-44.0); MEAN CORPUSCULAR HEMOGLOBIN 31.9 pg (27.0-33.0); MEAN CORPUSCULAR HGB CONC 34.4 g/dl (32.0-36.5); MEAN CORPUSCULAR VOLUME 92.7 fl (80.0-96.0); MONO # 0.7 10^3/uL (0.0-0.8); MONO % 9.6 % (2.0-8.0); NEUTROPHILS # 4.7 10^3/uL (1.5-8.5); NEUTROPHILS % 63.9 % (36.0-66.0); PLATELET COUNT, AUTOMATED 186 10^3/uL (150-450); RED BLOOD COUNT 4.23 10^6/uL (4.00-5.40); WHITE BLOOD COUNT 7.3 10^3/uL (4.0-10.0)
[2024-01-10 15:46] LABS: ALBUMIN 4.1 G/DL (3.2-5.2); ALKALINE PHOSPHATASE 47 U/L (35-104); ALT/SGPT 35 U/L (7.0-40); AST/SGOT 19 U/L (<34); BILIRUBIN,TOTAL 0.4 MG/DL (0.3-1.2); BLOOD UREA NITROGEN 22 MG/DL (9-23); CARBON DIOXIDE LEVEL 28 MMOL/L (20-31); CHLORIDE LEVEL 105 MMOL/L (98-107); CREATININE FOR GFR 0.79 MG/DL (0.55-1.30); GLOMERULAR FILTRATION RATE > 60.0 (>39); GLUCOSE, FASTING 108 MG/DL (74-106); POTASSIUM SERUM 4.2 MMOL/L (3.5-5.1); SODIUM LEVEL 140 MMOL/L (136-145); TOTAL PROTEIN 7.4 G/DL (5.7-8.2)
[2024-01-10 15:48] LABS: THYROID STIMULATING HORMONE 0.567 uIU/ML (0.55-4.78)
[2024-01-10 16:48] LABS: THYROXINE (T4) 6.4 UG/DL (4.5-10.9)
== END ==
LOC: SKLAB7 14:37
PROVIDERS: ATTEND Internal Medicine
DX: R41.82 Altered mental status, unspecified (principal)

== ENCOUNTER → 2024-01-11 | Outpatient (REF) | payer MEDICARE, OTHER | LOC: SKLAB7 07:31 | PROVIDERS: ATTEND Internal Medicine | DX: R41.82 Altered mental status, unspecified (principal) ==

== ENCOUNTER → 2024-01-17 | Outpatient (REF) ==
[2024-01-17 20:32] LABS: BASO % 0.3 % (0.0-1.0); EOS # 0.1 10^3/uL (0.0-0.5); EOS % 0.9 % (0.0-3.0); HEMATOCRIT 36.6 % (36.0-47.0); HEMOGLOBIN 12.7 g/dl (12.0-15.5); LYMPH # 2.4 10^3/uL (1.5-5.0); LYMPH % 30.6 % (24.0-44.0); MEAN CORPUSCULAR HEMOGLOBIN 32.2 pg (27.0-33.0); MEAN CORPUSCULAR HGB CONC 34.7 g/dl (32.0-36.5); MEAN CORPUSCULAR VOLUME 92.7 fl (80.0-96.0); MONO # 0.9 10^3/uL (0.0-0.8); MONO % 12.1 % (2.0-8.0); NEUTROPHILS # 4.3 10^3/uL (1.5-8.5); PLATELET COUNT, AUTOMATED 175 10^3/uL (150-450); RED BLOOD COUNT 3.95 10^6/uL (4.00-5.40); WHITE BLOOD COUNT 7.7 10^3/uL (4.0-10.0)
[2024-01-17 20:55] LABS: BLOOD UREA NITROGEN 24 MG/DL (9-23); CALCIUM LEVEL 9.5 MG/DL (8.3-10.6); CARBON DIOXIDE LEVEL 26 MMOL/L (20-31); CHLORIDE LEVEL 108 MMOL/L (98-107); CREATININE FOR GFR 0.82 MG/DL (0.55-1.30); GLOMERULAR FILTRATION RATE > 60.0 (>39); GLUCOSE, FASTING 149 MG/DL (74-106); POTASSIUM SERUM 4.1 MMOL/L (3.5-5.1); SODIUM LEVEL 142 MMOL/L (136-145)
[2024-01-17 20:57] LABS: FOLATE > 24.00 NG/ML (>5.4); VITAMIN B12 LEVEL 656 PG/ML (211-911)
== END ==
LOC: SKLAB4 19:24
PROVIDERS: ATTEND Internal Medicine
DX: R41.82 Altered mental status, unspecified (principal)

== ENCOUNTER → 2024-01-18 | Outpatient (REF) | payer MEDICARE, OTHER ==
[2024-01-18 12:00] LABS: C REACTIVE PROTEIN QUANTITATIV < 0.50 MG/DL (<1.0)
[2024-01-18 12:01] LABS: RHEUMATOID FACTOR QUANT < 3.5 IU/ML (<14)
[2024-01-20 12:27] LABS: ANA PATTERN Nuclear, Speckled (NEGATIVE); ANA PATTERN 2 Nuclear, Homogeneous; ANA SCREEN, IFA POSITIVE (NEGATIVE)
== END ==
LOC: SKLAB7 07:46
PROVIDERS: ATTEND Internal Medicine
DX: R41.89 Other symptoms and signs involving cognitive functions and awareness (principal)

== ENCOUNTER → 2024-08-10 | Outpatient (REF) | payer MEDICARE, OTHER ==
[~2024-08-10] MED LIST changes: -EQL50TAB2 PO; -RABE1TAB4 PO; +RABE1TAB5 PO; +VITA1TAB82 PO
== END ==
LOC: SKLAB7 13:06
PROVIDERS: ATTEND Internal Medicine
DX: R06.89 Other abnormalities of breathing (principal); R06.02 Shortness of breath; Z53.8 Procedure and treatment not carried out for other reasons

== ENCOUNTER → 2024-08-10 | Outpatient (REF) | payer MEDICARE, OTHER | LOC: SKLAB7 13:32 | PROVIDERS: ATTEND Internal Medicine | DX: R94.31 Abnormal electrocardiogram [ECG] [EKG] (principal); I44.0 Atrioventricular block, first degree; I45.10 Unspecified right bundle-branch block ==

== ENCOUNTER → 2024-08-10 | Outpatient (REF) | payer MEDICARE, OTHER ==
[2024-08-10 14:27] LABS: PLATELET COUNT, AUTOMATED 140 10^3/uL (150-450)
[2024-08-10 14:55] LABS: CALCIUM LEVEL 9.2 MG/DL (8.3-10.6); CARBON DIOXIDE LEVEL 25.0 MMOL/L (20-31); CHLORIDE LEVEL 108.0 MMOL/L (98-107); CREATININE FOR GFR 0.9 MG/DL (0.55-1.30); GLOMERULAR FILTRATION RATE 68.4 (>39); POTASSIUM SERUM 4.4 MMOL/L (3.5-5.1); SODIUM LEVEL 146.0 MMOL/L (136-145)
== END ==
LOC: SKLAB7 12:59
PROVIDERS: ATTEND Internal Medicine
DX: R06.89 Other abnormalities of breathing (principal); R06.02 Shortness of breath; R94.31 Abnormal electrocardiogram [ECG] [EKG]; I44.0 Atrioventricular block, first degree; I45.10 Unspecified right bundle-branch block

== ENCOUNTER → 2024-09-08 | Outpatient (REF) | payer MEDICARE, OTHER ==
[2024-09-08 12:43] LABS: PLATELET COUNT, AUTOMATED 167 10^3/uL (150-450)
[2024-09-08 13:14] LABS: C REACTIVE PROTEIN QUANTITATIV < 0.50 MG/DL (<1.0); CALCIUM LEVEL 8.9 MG/DL (8.3-10.6); CARBON DIOXIDE LEVEL 28 MMOL/L (20-31); CHLORIDE LEVEL 105 MMOL/L (98-107); CREATININE FOR GFR 0.97 MG/DL (0.55-1.30); GLOMERULAR FILTRATION RATE 62.5 (>39); POTASSIUM SERUM 4.6 MMOL/L (3.5-5.1); SODIUM LEVEL 145 MMOL/L (136-145)
[2024-09-08 14:51] LABS: APPEARANCE, URINE HAZY (CLEAR); BACTERIA, URINE AUTO NEGATIVE (NEGATIVE); BILIRUBIN, URINE AUTO NEGATIVE (NEGATIVE); BLOOD, URINE BLOOD NEGATIVE (NEGATIVE); GLUCOSE, URINE (UA) AUTO NEGATIVE (NEGATIVE); KETONE, URINE AUTO NEGATIVE (NEGATIVE); LEUKOCYTE ESTERASE, URINE AUTO 1+ (NEGATIVE); MUCUS, URINE SMALL (NEGATIVE); NITRITE, URINE AUTO NEGATIVE (NEGATIVE); PROTEIN, URINE AUTO NEGATIVE (NEGATIVE); RBC, URINE AUTO 3 /HPF (0-3); SPECIFIC GRAVITY URINE AUTO 1.024 (1.002-1.035); SQUAMOUS EPITHELIAL CELL UR AU 1 /HPF (0-6); UROBILINOGEN, URINE AUTO 0.2 mg/dL (0.0-2.0); WBC, URINE AUTO 11 /HPF (0-3)
== END ==
LOC: SKLAB7 12:03
PROVIDERS: ATTEND Internal Medicine
DX: R39.89 Other symptoms and signs involving the genitourinary system (principal)

== ENCOUNTER → 2024-10-06 | Outpatient (REF) | payer MEDICARE, OTHER ==
[2024-10-06 13:15] LABS: APPEARANCE, URINE CLEAR (CLEAR); BACTERIA, URINE AUTO NEGATIVE (NEGATIVE); BILIRUBIN, URINE AUTO NEGATIVE (NEGATIVE); BLOOD, URINE BLOOD NEGATIVE (NEGATIVE); GLUCOSE, URINE (UA) AUTO NEGATIVE (NEGATIVE); KETONE, URINE AUTO NEGATIVE (NEGATIVE); LEUKOCYTE ESTERASE, URINE AUTO NEGATIVE (NEGATIVE); MUCUS, URINE SMALL (NEGATIVE); NITRITE, URINE AUTO NEGATIVE (NEGATIVE); PROTEIN, URINE AUTO NEGATIVE (NEGATIVE); RBC, URINE AUTO 2 /HPF (0-3); SPECIFIC GRAVITY URINE AUTO 1.015 (1.002-1.035); SQUAMOUS EPITHELIAL CELL UR AU 0 /HPF (0-6); UROBILINOGEN, URINE AUTO 0.2 mg/dL (0.0-2.0); WBC, URINE AUTO 2 /HPF (0-3)
== END ==
LOC: SKLAB7 12:46
PROVIDERS: ATTEND Internal Medicine
DX: R39.89 Other symptoms and signs involving the genitourinary system (principal)

== ENCOUNTER → 2024-10-10 | Outpatient (CLI) | payer MEDICARE, OTHER | LOC: M RAD 15:25 | PROVIDERS: ATTEND Nurse Practitioner Adult Health | DX: M25.511 Pain in right shoulder (principal) ==

== ENCOUNTER → 2024-10-12 | Outpatient (CLI) | payer MEDICARE, OTHER | LOC: M CARPUL 15:16 | PROVIDERS: ATTEND Nurse Practitioner Family | DX: R01.1 Cardiac murmur, unspecified (principal); I35.2 Nonrheumatic aortic (valve) stenosis with insufficiency ==

== ENCOUNTER → 2024-11-30 | Outpatient (REF) | payer MEDICARE, OTHER ==
[2024-11-30 13:27] LABS: PLATELET COUNT, AUTOMATED 199 10^3/uL (150-450)
[2024-11-30 13:52] LABS: ESTIMATED AVERAGE GLUCOSE 189.0 MG/DL (60-110)
[2024-11-30 14:00] LABS: ALT/SGPT 22.0 U/L (7.0-40); AST/SGOT 19.0 U/L (<34); CALCIUM LEVEL 8.9 MG/DL (8.3-10.6); CARBON DIOXIDE LEVEL 28.0 MMOL/L (20-31); CHLORIDE LEVEL 105.0 MMOL/L (98-107); CREATININE FOR GFR 0.84 MG/DL (0.55-1.30); GLOMERULAR FILTRATION RATE 74.3 (>39); POTASSIUM SERUM 4.2 MMOL/L (3.5-5.1); SODIUM LEVEL 143.0 MMOL/L (136-145)
== END ==
LOC: SKLAB7 07:23
PROVIDERS: ATTEND Family Medicine
DX: E11.9 Type 2 diabetes mellitus without complications (principal)

== ENCOUNTER → 2024-12-26 | Outpatient (REF) | payer MEDICARE, OTHER, MEDICAID ==
[2024-12-26 09:14] LABS: PLATELET COUNT, AUTOMATED 198 10^3/uL (150-450)
[2024-12-26 09:22] LABS: ESTIMATED AVERAGE GLUCOSE 166.0 MG/DL (60-110)
[2024-12-26 09:29] LABS: ALT/SGPT 17.0 U/L (7.0-40); AST/SGOT 18.0 U/L (<34); CALCIUM LEVEL 9.0 MG/DL (8.3-10.6); CARBON DIOXIDE LEVEL 28.0 MMOL/L (20-31); CHLORIDE LEVEL 106.0 MMOL/L (98-107); CHOLESTEROL LEVEL 131.0 MG/DL (<200); CHOLESTEROL RISK RATIO 2.97 (<5); CREATININE FOR GFR 0.83 MG/DL (0.55-1.30); GLOMERULAR FILTRATION RATE 75.3 (>39); LDL CHOLESTEROL 63.2 MG/DL (<100); NON-HDL-C 87.0 MG/DL; POTASSIUM SERUM 4.4 MMOL/L (3.5-5.1); SODIUM LEVEL 145.0 MMOL/L (136-145); TRIGLYCERIDES LEVEL 119.0 MG/DL (<150)
== END ==
LOC: SKLAB7 07:00
PROVIDERS: ATTEND Family Medicine
DX: E11.9 Type 2 diabetes mellitus without complications (principal); Z79.899 Other long term (current) drug therapy

== ENCOUNTER → 2025-01-16 | Outpatient (CLI) | payer MEDICARE, OTHER, MEDICAID | LOC: M RAD 09:36 | PROVIDERS: ATTEND Nurse Practitioner Adult Health | DX: M79.661 Pain in right lower leg (principal); I70.201 Unspecified atherosclerosis of native arteries of extremities, right leg ==

== ENCOUNTER → 2025-01-26 | Outpatient (REF) | payer MEDICARE, OTHER, MEDICAID ==
[2025-01-26 10:13] LABS: ESTIMATED AVERAGE GLUCOSE 160.0 MG/DL (60-110)
== END ==
LOC: SKLAB7 07:36
PROVIDERS: ATTEND Family Medicine
DX: E11.9 Type 2 diabetes mellitus without complications (principal)